=== PATIENT | male | born 1945 | race Caucasian/White ===

== ENCOUNTER 2019-01-15 09:34 | Outpatient (CLI) | payer MEDICARE, BC, SELFPAY ==
--- NOTE | 2019-01-15 09:38 | DI.RAD_ITS ---
SYMPTOM/DIAGNOSIS: F/U REVISION THR LEFT HIP: The patient is status post WALI with revision of the original prosthesis noted on 12/19/16. The prosthetic device is in good position. No localized bony abnormality is apparent. There is no evidence of these images of a fracture, dislocation or soft tissue mass.
== END 2019-01-15 09:54 ==
PROVIDERS: PCP Emergency Medicine; Referring Provider Emergency Medicine; Visit Provider Orthopaedic Surgery
DX: M25.552 Pain in left hip (principal); Z96.642 Presence of left artificial hip joint; M21.70 Unequal limb length (acquired), unspecified site
CPT/HCPCS: 99213; 73502

== ENCOUNTER 2019-10-02 07:00 | Outpatient (CLI) | payer MEDICARE, BC, SELFPAY ==
[2019-10-02 10:26] LABS: Absolute Basophil Count 0.04 k/cumm (0.0-0.2); Absolute Eosinophil Count 0.22 k/cumm (0.0-0.7); Absolute Lymphocyte Count 1.21 k/cumm (1.2-3.4); Absolute Monocyte Count 0.53 k/cumm (0.11-0.7); Basophils % 0.8; Eosinophils % 4.2; HCT 44.3 % (40.0-50.0); HGB 14.9 g/dL (13.5-17.5); Lymphocytes % 23.3; Mean Corp. HGB Concentration 33.6 g/dL (32.0-36.0); Mean Corpuscular Volume 92.3 fL (80-95); Mean Platelet Volume 10.6 fL (8.0-11.0); Monocytes % 10.2; Neutrophils % 61.5; Platelet Count 138 x1000/uL (130-400); RBC Distribution Width 13.3 % (11.8-14.1)
[2019-10-02 10:38] LABS: ALT 28 U/L (16-63); AST 15 U/L (15-37); Albumin 4.2 g/dL (3.4-5.0); Alkaline Phosphatase 91 U/L (46-116); Anion Gap 8.4 mmol/L (3-11); BUN 31 mg/dL (7-18); Bilirubin, Total 0.6 mg/dL (0.2-1.0); CO2 29.6 mmol/L (21.0-32.0); CREATININE 1.04 mg/dL (0.70-1.30); Calcium 9.4 mg/dL (8.5-10.1); Calculated LDL 95 mg/dL; Chloride 110 mmol/L (98-107); Cholesterol 156 mg/dL (<200); Glucose 77 mg/dL (74-106); HDL Cholesterol 40 mg/dL (40-60); Potassium 4.6 mmol/L (3.5-5.1); Sodium 148 mmol/L (136-145); Triglyceride 109 mg/dL (<150)
[2019-10-02 11:37] LABS: ESR 7 mm/hr (1-20)
== END 2019-10-02 07:20 ==
PROVIDERS: PCP Emergency Medicine; Visit Provider Emergency Medicine
DX: K57.30 Diverticulosis of large intestine without perforation or abscess without bleeding (principal); M00.09 Staphylococcal polyarthritis; E66.3 Overweight
CPT/HCPCS: 36415; 80053; 80061; 85652; 85025; 86140

== ENCOUNTER 2019-12-03 10:15 | Outpatient (CLI) | payer MEDICARE, BC, SELFPAY ==
--- NOTE | 2019-12-03 10:13 | DI.RAD_ITS ---
EXAM: XR HIP LT COMPLETE AND AP PELVIS INDICATION: ACUTE LEFT HIP PAIN. COMPARISON: XR hip LT complete AP pelvis from 01/15/2019 TECHNIQUE: 2D digital imaging was performed. FINDINGS: The left hip prosthesis is stable in position. No evidence of hardware failure is seen. The distal aspect of the femoral component is not visualized. No acute fracture or dislocation is present. The soft tissues are unremarkable.
== END 2019-12-03 10:35 ==
PROVIDERS: PCP Emergency Medicine; Referring Provider Emergency Medicine; Visit Provider Orthopaedic Surgery
DX: M25.552 Pain in left hip (principal); Z96.642 Presence of left artificial hip joint; M00.9 Pyogenic arthritis, unspecified; M79.652 Pain in left thigh; T84.52XD Infection and inflammatory reaction due to internal left hip prosthesis, subsequent encounter
CPT/HCPCS: 36415; 85027; 85652; 99213; 73502; 86140

== ENCOUNTER 2019-12-03 10:48 | Outpatient (CLI) | payer MEDICARE, BC, SELFPAY ==
[2019-12-03 11:33] LABS: HCT 44.6 % (40.0-50.0); Mean Corp. HGB Concentration 33.6 g/dL (32.0-36.0); Mean Corpuscular Hemoglobin 30.9 pg (27.0-33.0); Mean Corpuscular Volume 91.8 fL (80-95); Mean Platelet Volume 10.1 fL (8.0-11.0); Platelet Count 155 x1000/uL (130-400); RBC 4.86 m/cumm (4.50-6.00); White Blood Cell Count 5.78 k/cumm (4.4-10.8)
[2019-12-03 12:23] LABS: ESR 3 mm/hr (1-20)
[2019-12-03 13:16] LABS: C-Reactive Protein 0.11 mg/dL (0.0-0.3)
== END 2019-12-03 11:08 ==
PROVIDERS: PCP Emergency Medicine; Visit Provider Physician Assistant
DX: M00.9 Pyogenic arthritis, unspecified (principal); Z96.642 Presence of left artificial hip joint
CPT/HCPCS: 36415; 85027; 85652; 86140

== ENCOUNTER → 2020-01-01 10:24 | Outpatient (BNVA) | payer MEDICARE, BC, SELFPAY | PROVIDERS: PCP Emergency Medicine; Referring Provider Emergency Medicine; Visit Provider Orthopaedic Surgery | DX: S76.019D Strain of muscle, fascia and tendon of unspecified hip, subsequent encounter (principal); X58.XXXD Exposure to other specified factors, subsequent encounter | CPT/HCPCS: 99213 ==

== ENCOUNTER 2020-01-14 08:37 | Emergency (ER) | payer OTHER, SELFPAY ==
[2020-01-14] VITALS (16 sets, daily range): BP systolic 119–161; BP diastolic 78–110; PULSE 60–64; RESP 0–20; TEMP 36.5; O2SAT 95–99
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
[2020-01-14] MEDS: Lidocaine 5% Patch 1 PATCH TP (09:24)
[2020-01-14] MEDS: Acetaminophen 500 MG TAB 1000 MG PO (09:24)
== END 2020-01-14 11:45 | disposition home or self-care (01) ==
PROVIDERS: Emergency Provider Physician Assistant; PCP Emergency Medicine
DX: R07.81 Pleurodynia (principal); S22.41XA Multiple fractures of ribs, right side, initial encounter for closed fracture; V43.52XA Car driver injured in collision with other type car in traffic accident, initial encounter; Z95.810 Presence of automatic (implantable) cardiac defibrillator
CPT/HCPCS: 71250; 93005; 99284; 93010; 99285

== ENCOUNTER 2020-04-28 02:40 | Outpatient (CLI) | payer MEDICARE, BC, SELFPAY ==
[2020-04-28 14:44] LABS: Anion Gap 7.8 mmol/L (3-11); BUN 24 mg/dL (7-18); CO2 27.2 mmol/L (21.0-32.0); CREATININE 1.01 mg/dL (0.70-1.30); Calcium 9.1 mg/dL (8.5-10.1); Chloride 108 mmol/L (98-107); Glucose 77 mg/dL (74-106); NT-proBNP 205 pg/mL (<300); Potassium 4.3 mmol/L (3.5-5.1); Sodium 143 mmol/L (136-145)
== END 2020-04-28 03:00 ==
PROVIDERS: PCP Emergency Medicine; Visit Provider Internal Medicine Cardiovascular Disease
DX: I50.22 Chronic systolic (congestive) heart failure (principal)
CPT/HCPCS: 36415; 80048; 83880

== ENCOUNTER 2020-09-15 01:58 | Outpatient (CLI) | payer MEDICARE, BC, SELFPAY ==
[2020-09-15 09:03] LABS: Abs Immature Grans 0.02 10^3/uL (0.0-0.06); Absolute Basophil Count 0.04 10^3/uL (0.0-0.2); Absolute Eosinophil Count 0.25 10^3/uL (0.0-0.7); Absolute Lymphocyte Count 1.28 10^3/uL (1.2-3.4); Absolute Monocyte Count 0.42 10^3/uL (0.1-0.8); Absolute Neutrophil Count 2.92 10^3/uL (1.2-6.7); Basophils % 0.8; Eosinophils % 5.1; HCT 41.5 % (40.0-50.0); HGB 14.3 g/dL (13.5-17.5); Immature Grans % 0.4; MCH 31.7 pg (27.0-33.0); MCHC 34.5 % (32.0-36.0); MPV 10.5 fL (8.0-11.0); Monocytes % 8.5; Neutrophils % 59.2; Nucleated RBC 0 %; Platelet Count 126 10^3/uL (130-400); RBC 4.51 10^6/uL (4.36-5.78); RDW 12.5 % (11.8-14.1); RDW-SD 42.2 fL; WBC 4.93 10^3/uL (4.4-10.8)
[2020-09-15 10:19] LABS: ESR 8 mm/hr (1-20)
[2020-09-15 10:35] LABS: ALT 24 U/L (16-63); AST 18 U/L (15-37); Alkaline Phosphatase 91 U/L (46-116); BUN 29 mg/dL (7-18); Bilirubin, Direct 0.11 mg/dL (0.00-0.20); Bilirubin, Total 0.5 mg/dL (0.2-1.0); C-Reactive Protein 0.15 mg/dL (0.0-0.3); CREATININE 1.06 mg/dL (0.70-1.30); Total Protein 6.8 g/dL (6.4-8.2)
== END 2020-09-15 02:18 ==
PROVIDERS: PCP Emergency Medicine; Visit Provider Orthopaedic Surgery
DX: M00.9 Pyogenic arthritis, unspecified (principal)
CPT/HCPCS: 36415; 80076; 84520; 85652; 82565; 85025; 86140

== ENCOUNTER 2020-09-22 13:53 | Outpatient (CLI) | payer MEDICARE, BC, SELFPAY ==
--- NOTE | 2020-09-22 11:45 | DI.RAD_ITS ---
EXAM: XR HIP LT AP LAT ONLY CLINICAL HISTORY: pain. TECHNIQUE: 2D digital imaging was performed. COMPARISON: CR XR HIP LT COMPLETE AP PELVIS from 12/03/2019 FINDINGS: BONES: No acute fracture is present. No bony destructive lesion is seen. JOINTS: No dislocation present. Stable appearance of left hip prosthesis. SOFT TISSUE: Normal. IMPRESSION: Stable appearance of left hip prosthesis. DATA REPOSITORY: RADIATION DOSE DELIVERED:
== END 2020-09-22 14:13 ==
PROVIDERS: PCP Emergency Medicine; Referring Provider Emergency Medicine; Visit Provider Orthopaedic Surgery
DX: Z96.642 Presence of left artificial hip joint (principal); M25.552 Pain in left hip; M00.9 Pyogenic arthritis, unspecified
CPT/HCPCS: 99213; 73502

== ENCOUNTER → 2020-09-30 07:46 | Outpatient (BNVA) | payer MEDICARE, BC, SELFPAY | PROVIDERS: PCP Emergency Medicine; Referring Provider Emergency Medicine; Visit Provider Nurse Practitioner Gerontology | DX: N32.81 Overactive bladder (principal) | CPT/HCPCS: 99204; 99215 ==

== ENCOUNTER 2020-09-30 08:49 | Outpatient (REF) | payer MEDICARE, BC, SELFPAY | END 2020-09-30 09:09 | LOC: LBN 08:49 | PROVIDERS: PCP Emergency Medicine; Visit Provider Nurse Practitioner Gerontology | DX: R32 Unspecified urinary incontinence (principal); Z12.5 Encounter for screening for malignant neoplasm of prostate | CPT/HCPCS: 84153 ==

== ENCOUNTER 2020-10-05 00:35 | Outpatient (CLI) | payer MEDICARE, BC, SELFPAY ==
--- NOTE | 2020-10-05 07:00 | DI.NM_ITS ---
EXAM: NM BONE SCAN WHOLE BDY W/SPECT CLINICAL HISTORY: Left hip pain. Possible loose femoral stem,M25.552 TECHNIQUE: COMPARISON: CT ABD PELVIS WITH CONTRAST from 06/09/2012 NM Bone Scan from 03/08/2018 NM Bone Scan from 03/08/2018 CR XR HIP LT AP LAT ONLY from 09/22/2020 CR XR HIP LT AP LAT ONLY from 09/22/2020 FINDINGS: Whole body bone scan was performed with IV technetium 99 MDP. Relevant prior plain films were review ed There is abnormal uptake around the inferior aspect of the left hip prosthesis consistent with probab le loosening. 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 There is also increased focal uptake s een in there is probably upper L5 vertebral body.. No other significant uptake in the spinal column. In in the upper right parietal bone of the skull there is a focus of increased uptake, suspicious. There is increased uptake seen in the anterior aspect of the 1st ribs on both sides as well as the r ight 3rd, 4th, and 5th ribs, possibly related to trauma although cannot exclude metastatic disease. No abnormal uptake seen in the left ridge cage. Photopenic zone on the left side of the chest is mos t probably from pacemaker. Uptake in the right great toe metatarsophalangeal joint is most probably degenerative or gout related . IMPRESSION: 1. Abnormal uptake around the lower stem of the left hip prosthesis, probably an element of loosening . 2. 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 3. Unilateral right-sided ribcage uptake is possibly posttraumatic. 4. Focus of increased uptake in the right parietal bone of the skull. 5. Other findings as above.
== END 2020-10-05 00:55 ==
PROVIDERS: PCP Emergency Medicine; Visit Provider Emergency Medicine
DX: M25.552 Pain in left hip (principal); Z96.642 Presence of left artificial hip joint
CPT/HCPCS: 78306; 78830

== ENCOUNTER 2020-10-08 03:20 | Outpatient (CLI) | payer MEDICARE, BC, SELFPAY ==
--- NOTE | 2020-10-08 07:15 | DI.CT_ITS ---
EXAM: CT PELVIC WO CLINICAL HISTORY: abnormal bone scan,R94.8. TECHNIQUE: Imaging Protocol: Axial computed tomography images with coronal and sagittal reformatted images were created and reviewed CONTRAST MATERIAL: Intravenous: none Oral: None COMPARISON: CT,NM NM BONE SCAN WHOLE BDY W/SPECT from 10/05/2020 FINDING: PELVIS: OSSEOUS: There are advanced degenerative changes in the lower lumbar spine, both degenerative disc di sease and facet joint arthropathy, this most probably accounting for the increased uptake on the rece nt nuclear bone scan at this level. However, there is also a focal lucent bone lesion measuring 8 x 7 millimeters located in the right lamina of L5 and this is also corresponding the same area which ex hibits abnormals uptake on the recent nuclear scan.. This well-defined bone lesion is slightly expan sile and with cortical thickening at this level in the lamina. In the left hemipelvis there is a definite asymmetry in the density of the pubic rami on the left werner dutch the right side. The right side appears unremarkable. The left superior and inferior pubic rami exhibit abnormal increased density, this corresponding to the uptake on the recent nuclear scan. The re is no cortex thickening to suggest that this is Paget's disease. Main consideration is for osseou s infection versus blastic metastases. There is no cortical dehiscence.. No adjacent fluid collecti on in the soft tissues of the pelvis. No associated pathologic fracture. This process also extends posteriorly into the iliac bone but does not cross the sacroiliac joint to involve the sacrum. There is an ipsilateral left hip prosthesis. There is some lucency around the upper femoral stem. T he cortex also appears uniformly hyperdense around the stem component although unfortunately the most inferior aspect of the stem component is not in the field of view of this study, this being the area which exhibit abnormal uptake on the recent nuclear bone scan. ANTERIOR ABDOMINAL WALL/GI:No evidence of significant anterior abdominal wall nor inguinal hernia in the pelvis evident.No obvious bowel obstruction. No evidence of appendicitis.No evidence of acute si gmoid diverticulitis.No free fluid in the pelvis. Upper most image of this study reveals what appears to be probable exophytic cyst off the left kidney , only partially included in the field of view here. This measures approximately 4 by 3.5 centimetres . LYMPH NODES: There is no intrapelvic nor inguinal adenopathy. URINARY BLADDER: Not distended but difficult to assess because of beam hardening artifact from the ad jacent left hip prosthesis. REPRODUCTIVE: Prostate gland is slightly enlarged. Urinary bladder is not distended. IMPRESSION: 1. Increased density in the left osseous hemipelvis including post superior and inferior pubic rami a s well as the acetabulum and iliac bone extending back 2 but not beyond the ipsilateral sacroiliac karen int. Also similar-type increased density seen in the femur surrounding the prosthesis. No evidence of pathologic fracture. First consideration here is for osteomyelitis; less likely to represent Page t's disease, fibrous dysplasia, nor blastic metastatic disease. 2. Although there is abundant degenerative change in the lumbar spine to account for the increased up take at L5 level seen on the recent nuclear bone scan, there is also a small well-defined but somewha t expansile 8 x 7 millimeter lucent lesion in the right lamina of the L5 vertebra, this also correspo nding to the area of abnormal uptake of radiopharmaceutical on the recent nuclear exam. 3. Incidentally noted in the peripheral aspect of the field of view is a partially included exophytic cyst in the left kidney measuring 4 centimeters. RADIATION DOSE DELIVERED: 664.1mGy.cm Total DLP DATA REPOSITORY: All CT scans at this facility are submitted to the National Radiology Data Registry (NRDR) Dose Index Registry (DIR) with the [employer] (ACR). RADIATION OPTIMIZATION: All CT scans at this facility use at least one of these dose optimization te chniques: automated exposure control; mA and/or kV adjustment per patient size (includes targeted exa ms where dose is matched to clinical indication); or iterative reconstruction.
== END 2020-10-08 03:40 ==
PROVIDERS: PCP Emergency Medicine; Visit Provider Emergency Medicine
DX: R94.8 Abnormal results of function studies of other organs and systems (principal); M47.816 Spondylosis without myelopathy or radiculopathy, lumbar region; N28.1 Cyst of kidney, acquired
CPT/HCPCS: 72192

== ENCOUNTER 2020-11-02 08:54 | Outpatient (CLI) | payer MEDICARE, BC, SELFPAY ==
[2020-11-03 19:36] LABS: COVID-19 RT-PCR UVMMC Result Negative (Negative)
== END 2020-11-02 09:14 ==
PROVIDERS: PCP Emergency Medicine; Visit Provider Orthopaedic Surgery Adult Reconstructive Orthopaedic Surgery
DX: Z11.59 Encounter for screening for other viral diseases (principal); Z01.818 Encounter for other preprocedural examination
CPT/HCPCS: U0003

== ENCOUNTER 2020-11-09 19:21 | Outpatient (REF) | payer MEDICARE, BC, SELFPAY ==
[2020-11-09 14:08] LABS: Abs Immature Grans 0.01 10^3/uL (0.0-0.06); Absolute Basophil Count 0.05 10^3/uL (0.0-0.2); Absolute Eosinophil Count 0.28 10^3/uL (0.0-0.7); Absolute Lymphocyte Count 0.76 10^3/uL (1.2-3.4); Absolute Monocyte Count 0.64 10^3/uL (0.1-0.8); Absolute Neutrophil Count 4.15 10^3/uL (1.2-6.7); Basophils % 0.8; Eosinophils % 4.8; HCT 28.9 % (40.0-50.0); HGB 9.7 g/dL (13.5-17.5); Immature Grans % 0.2; Lymphocytes % 12.9; MCH 31.4 pg (27.0-33.0); MCHC 33.6 % (32.0-36.0); MCV 93.5 fL (80-95); MPV 11.5 fL (8.0-11.0); Monocytes % 10.9; Neutrophils % 70.4; Nucleated RBC 0 %; Platelet Count 122 10^3/uL (130-400); RBC 3.09 10^6/uL (4.36-5.78); RDW-SD 44.5 fL; WBC 5.89 10^3/uL (4.4-10.8)
[2020-11-09 14:33] LABS: ALT 18 U/L (16-63); AST 21 U/L (15-37); Albumin 3.2 g/dL (3.4-5.0); Alkaline Phosphatase 65 U/L (46-116); Anion Gap 7.2 mmol/L (3-11); BUN 16 mg/dL (7-18); Bilirubin, Total 0.6 mg/dL (0.2-1.0); C-Reactive Protein 10.12 mg/dL (0.0-0.3); CO2 29.8 mmol/L (21.0-32.0); Calcium 8.5 mg/dL (8.5-10.1); Chloride 107 mmol/L (98-107); Glucose 83 mg/dL (74-106); Sodium 144 mmol/L (136-145); Total Protein 5.9 g/dL (6.4-8.2)
== END 2020-11-09 19:41 ==
LOC: LBN 19:21
PROVIDERS: PCP Emergency Medicine; Visit Provider Orthopaedic Surgery Adult Reconstructive Orthopaedic Surgery
DX: Z79.2 Long term (current) use of antibiotics (principal); T84.52XD Infection and inflammatory reaction due to internal left hip prosthesis, subsequent encounter
CPT/HCPCS: 80053; 85025; 86140

== ENCOUNTER 2020-11-16 19:21 | Outpatient (REF) | payer MEDICARE, BC, SELFPAY ==
[2020-11-16 14:35] LABS: Abs Immature Grans 0.02 10^3/uL (0.0-0.06); Absolute Basophil Count 0.04 10^3/uL (0.0-0.2); Absolute Eosinophil Count 0.31 10^3/uL (0.0-0.7); Absolute Lymphocyte Count 0.97 10^3/uL (1.2-3.4); Absolute Monocyte Count 0.52 10^3/uL (0.1-0.8); Absolute Neutrophil Count 5.17 10^3/uL (1.2-6.7); Basophils % 0.6; Eosinophils % 4.4; HCT 32.3 % (40.0-50.0); HGB 10.7 g/dL (13.5-17.5); Immature Grans % 0.3; Lymphocytes % 13.8; MCH 31.1 pg (27.0-33.0); MCHC 33.1 % (32.0-36.0); MCV 93.9 fL (80-95); MPV 10.1 fL (8.0-11.0); Monocytes % 7.4; Neutrophils % 73.5; Nucleated RBC 0 %; Platelet Count 248 10^3/uL (130-400); RBC 3.44 10^6/uL (4.36-5.78); RDW 12.6 % (11.8-14.1); RDW-SD 43.5 fL; WBC 7.03 10^3/uL (4.4-10.8)
[2020-11-16 14:41] LABS: ALT 21 U/L (16-63); AST 16 U/L (15-37); Albumin 3.2 g/dL (3.4-5.0); Alkaline Phosphatase 97 U/L (46-116); Anion Gap 8.6 mmol/L (3-11); BUN 24 mg/dL (7-18); Bilirubin, Total 0.3 mg/dL (0.2-1.0); C-Reactive Protein 2.97 mg/dL (0.0-0.3); CO2 27.4 mmol/L (21.0-32.0); CREATININE 0.96 mg/dL (0.70-1.30); Calcium 8.4 mg/dL (8.5-10.1); Chloride 105 mmol/L (98-107); Glucose 106 mg/dL (74-106); Potassium 4.3 mmol/L (3.5-5.1); Sodium 141 mmol/L (136-145); Total Protein 6.9 g/dL (6.4-8.2)
== END 2020-11-16 19:41 ==
LOC: LBN 19:21
PROVIDERS: PCP Emergency Medicine; Visit Provider Orthopaedic Surgery Adult Reconstructive Orthopaedic Surgery
DX: A49.9 Bacterial infection, unspecified (principal)
CPT/HCPCS: 80053; 85025; 86140

== ENCOUNTER 2020-11-23 14:23 | Outpatient (REF) | payer MEDICARE, BC, SELFPAY ==
[2020-11-23 15:13] LABS: Abs Immature Grans 0.02 10^3/uL (0.0-0.06); Absolute Basophil Count 0.08 10^3/uL (0.0-0.2); Absolute Eosinophil Count 0.26 10^3/uL (0.0-0.7); Absolute Lymphocyte Count 0.74 10^3/uL (1.2-3.4); Absolute Monocyte Count 0.52 10^3/uL (0.1-0.8); Absolute Neutrophil Count 3.54 10^3/uL (1.2-6.7); Basophils % 1.6; HCT 35.8 % (40.0-50.0); HGB 11.5 g/dL (13.5-17.5); Immature Grans % 0.4; Lymphocytes % 14.3; MCH 30.3 pg (27.0-33.0); MCHC 32.1 % (32.0-36.0); MCV 94.5 fL (80-95); Monocytes % 10.1; Neutrophils % 68.6; Nucleated RBC 0 %; Platelet Count 293 10^3/uL (130-400); RBC 3.79 10^6/uL (4.36-5.78); RDW-SD 44.7 fL; WBC 5.16 10^3/uL (4.4-10.8)
[2020-11-23 15:37] LABS: ALT 17 U/L (16-63); AST 13 U/L (15-37); Albumin 3.6 g/dL (3.4-5.0); Alkaline Phosphatase 109 U/L (46-116); Anion Gap 8.4 mmol/L (3-11); BUN 27 mg/dL (7-18); Bilirubin, Total 0.4 mg/dL (0.2-1.0); C-Reactive Protein 0.76 mg/dL (0.0-0.3); CO2 26.6 mmol/L (21.0-32.0); CREATININE 1.04 mg/dL (0.70-1.30); Chloride 105 mmol/L (98-107); Glucose 105 mg/dL (74-106); Potassium 4.3 mmol/L (3.5-5.1); Sodium 140 mmol/L (136-145)
[2020-11-23 15:39] LABS: Calcium 9.1 mg/dL (8.5-10.1)
== END 2020-11-23 14:43 ==
LOC: LBN 14:23
PROVIDERS: PCP Emergency Medicine; Visit Provider Orthopaedic Surgery Adult Reconstructive Orthopaedic Surgery
DX: T84.52XD Infection and inflammatory reaction due to internal left hip prosthesis, subsequent encounter (principal)
CPT/HCPCS: 80053; 85025; 86140

== ENCOUNTER 2020-11-30 13:31 | Outpatient (REF) | payer MEDICARE, BC, SELFPAY ==
[2020-11-30 15:29] LABS: Abs Immature Grans 0.02 10^3/uL (0.0-0.06); Absolute Basophil Count 0.04 10^3/uL (0.0-0.2); Absolute Eosinophil Count 0.27 10^3/uL (0.0-0.7); Absolute Lymphocyte Count 0.74 10^3/uL (1.2-3.4); Absolute Neutrophil Count 2.95 10^3/uL (1.2-6.7); Basophils % 0.9; HCT 37.1 % (40.0-50.0); HGB 12.1 g/dL (13.5-17.5); Immature Grans % 0.4; Lymphocytes % 16.4; MCH 30.6 pg (27.0-33.0); MCHC 32.6 % (32.0-36.0); MCV 93.9 fL (80-95); MPV 10.5 fL (8.0-11.0); Monocytes % 11.1; Neutrophils % 65.2; Nucleated RBC 0 %; Platelet Count 196 10^3/uL (130-400); RBC 3.95 10^6/uL (4.36-5.78); RDW-SD 44.6 fL; WBC 4.52 10^3/uL (4.4-10.8)
[2020-11-30 15:41] LABS: ALT 17 U/L (16-63); AST 13 U/L (15-37); Albumin 3.5 g/dL (3.4-5.0); Alkaline Phosphatase 134 U/L (46-116); Anion Gap 10.3 mmol/L (3-11); BUN 28 mg/dL (7-18); Bilirubin, Total 0.2 mg/dL (0.2-1.0); C-Reactive Protein 0.59 mg/dL (0.0-0.3); CO2 26.7 mmol/L (21.0-32.0); Chloride 106 mmol/L (98-107); Glucose 115 mg/dL (74-106); Potassium 4.1 mmol/L (3.5-5.1); Sodium 143 mmol/L (136-145)
== END 2020-11-30 13:51 ==
LOC: LBN 13:31
PROVIDERS: PCP Emergency Medicine; Visit Provider Orthopaedic Surgery Adult Reconstructive Orthopaedic Surgery
DX: T84.52XD Infection and inflammatory reaction due to internal left hip prosthesis, subsequent encounter (principal); Z79.2 Long term (current) use of antibiotics
CPT/HCPCS: 80053; 85025; 86140

== ENCOUNTER 2020-12-07 13:29 | Outpatient (REF) | payer MEDICARE, BC, SELFPAY ==
[2020-12-07 16:39] LABS: Abs Immature Grans 0.01 10^3/uL (0.0-0.06); Absolute Basophil Count 0.02 10^3/uL (0.0-0.2); Absolute Eosinophil Count 0.16 10^3/uL (0.0-0.7); Absolute Lymphocyte Count 0.63 10^3/uL (1.2-3.4); Absolute Monocyte Count 0.44 10^3/uL (0.1-0.8); Absolute Neutrophil Count 2.33 10^3/uL (1.2-6.7); Basophils % 0.6; Eosinophils % 4.5; HCT 38.4 % (40.0-50.0); HGB 12.3 g/dL (13.5-17.5); Immature Grans % 0.3; Lymphocytes % 17.5; MCH 30.1 pg (27.0-33.0); MCV 93.9 fL (80-95); MPV 10.2 fL (8.0-11.0); Monocytes % 12.3; Neutrophils % 64.8; Nucleated RBC 0 %; Platelet Count 137 10^3/uL (130-400); RBC 4.09 10^6/uL (4.36-5.78); RDW 12.8 % (11.8-14.1); RDW-SD 43.8 fL; WBC 3.59 10^3/uL (4.4-10.8)
[2020-12-07 17:51] LABS: ALT 16 U/L (16-63); AST 17 U/L (15-37); Albumin 3.6 g/dL (3.4-5.0); Alkaline Phosphatase 123 U/L (46-116); BUN 24 mg/dL (7-18); Bilirubin, Total 0.3 mg/dL (0.2-1.0); C-Reactive Protein 0.58 mg/dL (0.0-0.3); Calcium 9.1 mg/dL (8.5-10.1); Chloride 106 mmol/L (98-107); Glucose 143 mg/dL (74-106); Sodium 144 mmol/L (136-145)
== END 2020-12-07 13:30 | disposition home or self-care (01) ==
LOC: LBN 13:29
PROVIDERS: PCP Emergency Medicine; Referring Provider Orthopaedic Surgery Adult Reconstructive Orthopaedic Surgery; Visit Provider Orthopaedic Surgery Adult Reconstructive Orthopaedic Surgery
DX: T84.52XD Infection and inflammatory reaction due to internal left hip prosthesis, subsequent encounter (principal); Z79.2 Long term (current) use of antibiotics
CPT/HCPCS: 80053; 85025; 86140

== ENCOUNTER 2020-12-14 09:26 | Outpatient (REF) | payer MEDICARE, BC, SELFPAY ==
[2020-12-15 14:03] LABS: ALT 25 U/L (16-63); AST 24 U/L (15-37); Albumin 3.6 g/dL (3.4-5.0); Alkaline Phosphatase 113 U/L (46-116); Anion Gap 9.9 mmol/L (3-11); BUN 29 mg/dL (7-18); Bilirubin, Total 0.2 mg/dL (0.2-1.0); C-Reactive Protein 0.52 mg/dL (0.0-0.3); CO2 28.1 mmol/L (21.0-32.0); Calcium 8.7 mg/dL (8.5-10.1); Chloride 108 mmol/L (98-107); Glucose 92 mg/dL (74-106); Potassium 4.2 mmol/L (3.5-5.1); Sodium 146 mmol/L (136-145); Total Protein 6.8 g/dL (6.4-8.2)
== END 2020-12-14 09:27 | disposition home or self-care (01) ==
LOC: LBN 09:26
PROVIDERS: PCP Emergency Medicine; Referring Provider Orthopaedic Surgery Adult Reconstructive Orthopaedic Surgery; Visit Provider Orthopaedic Surgery Adult Reconstructive Orthopaedic Surgery
DX: T84.52XD Infection and inflammatory reaction due to internal left hip prosthesis, subsequent encounter (principal); Z79.2 Long term (current) use of antibiotics
CPT/HCPCS: 80053; 85025; 86140

== ENCOUNTER 2020-12-15 15:07 | Outpatient (REF) | payer MEDICARE, BC, SELFPAY ==
[2020-12-15 15:20] LABS: Absolute Basophil Count 0.02 10^3/uL (0.0-0.2); Absolute Eosinophil Count 0.32 10^3/uL (0.0-0.7); Absolute Lymphocyte Count 0.65 10^3/uL (1.2-3.4); Absolute Monocyte Count 0.24 10^3/uL (0.1-0.8); Basophils % 0.9; Eosinophils % 13.7; HCT 37.5 % (40.0-50.0); HGB 12.2 g/dL (13.5-17.5); Lymphocytes % 27.9; MCH 29.8 pg (27.0-33.0); MCHC 32.5 % (32.0-36.0); MCV 91.7 fL (80-95); MPV 11.1 fL (8.0-11.0); Monocytes % 10.3; Neutrophils % 47.2; Nucleated RBC 0 %; Platelet Count 112 10^3/uL (130-400); RBC 4.09 10^6/uL (4.36-5.78); RDW 12.8 % (11.8-14.1); WBC 2.33 10^3/uL (4.4-10.8)
== END 2020-12-15 15:08 | disposition home or self-care (01) ==
LOC: LBN 15:07
PROVIDERS: PCP Emergency Medicine; Visit Provider Orthopaedic Surgery Adult Reconstructive Orthopaedic Surgery
DX: T84.52XD Infection and inflammatory reaction due to internal left hip prosthesis, subsequent encounter (principal); Z79.2 Long term (current) use of antibiotics
CPT/HCPCS: 85025

== ENCOUNTER 2020-12-28 04:26 | Outpatient (CLI) | payer MEDICARE, BC, SELFPAY ==
[2020-12-28 13:00] LABS: Abs Immature Grans 0.01 10^3/uL (0.0-0.06); Absolute Basophil Count 0.05 10^3/uL (0.0-0.2); Absolute Eosinophil Count 0.11 10^3/uL (0.0-0.7); Absolute Lymphocyte Count 0.88 10^3/uL (1.2-3.4); Absolute Monocyte Count 0.41 10^3/uL (0.1-0.8); Absolute Neutrophil Count 2.41 10^3/uL (1.2-6.7); Basophils % 1.3; Eosinophils % 2.8; HCT 39.2 % (40.0-50.0); HGB 12.9 g/dL (13.5-17.5); Immature Grans % 0.3; Lymphocytes % 22.7; MCH 29.8 pg (27.0-33.0); MCHC 32.9 % (32.0-36.0); MCV 90.5 fL (80-95); MPV 10.3 fL (8.0-11.0); Monocytes % 10.6; Neutrophils % 62.3; Nucleated RBC 0 %; Platelet Count 173 10^3/uL (130-400); RBC 4.33 10^6/uL (4.36-5.78); RDW 12.6 % (11.8-14.1); RDW-SD 41.5 fL; WBC 3.87 10^3/uL (4.4-10.8)
[2020-12-28 15:46] LABS: ESR 8 mm/hr (<or=20)
== END 2020-12-28 04:27 | disposition home or self-care (01) ==
LOC: LBO 04:26
PROVIDERS: PCP Emergency Medicine; Visit Provider Emergency Medicine
DX: D72.819 Decreased white blood cell count, unspecified (principal)
CPT/HCPCS: 36415; 85652; 85025

== ENCOUNTER → 2020-12-30 08:52 | Outpatient (BNVA) | payer MEDICARE, BC, SELFPAY | PROVIDERS: PCP Emergency Medicine; Referring Provider Emergency Medicine; Visit Provider Nurse Practitioner Gerontology | DX: N32.81 Overactive bladder (principal) | CPT/HCPCS: 99213 ==

== ENCOUNTER 2021-04-16 11:08 | Day surgery (SDC) | payer MEDICARE, BC, SELFPAY ==
[2021-04-16] VITALS (12 sets, daily range): BP systolic 85–141; BP diastolic 45–91; PULSE 59–63; RESP 10–18; TEMP 36–36.6; O2SAT 94–99; BMI 33.4
--- NOTE | 2021-04-16 11:00 | DI.RAD_ITS ---
Exam(s) XR HIP LT COMPLETE AP PELVIS EXAM: XR HIP LT COMPLETE AP PELVIS CLINICAL HISTORY: dislocation vs fx, hx of hip replacement. TECHNIQUE: 2D digital imaging was performed. COMPARISON: CR XR HIP LT COMPLETE AP PELVIS from 12/03/2019 FINDINGS: BONES: No acute fracture is present. No bony destructive lesion is seen. JOINTS: The patient has a left total hip replacement. There is a posterior dislocation of the femora l head component relative to the acetabular component. SOFT TISSUE: Normal. IMPRESSION: Left WALI. Posterior dislocation of the femoral head component of the arthroplasty relative to the ac etabular component. DATA REPOSITORY: RADIATION DOSE DELIVERED:
--- NOTE | 2021-04-16 11:00 | RT.EKG_ITS ---
APPROVED REPORT Exam: Resting ECG Reason for Exam: pre op Patient Location: E HR:60 bpm ECG Measurements Heart Rate 60 AXIS IN 180 P 104 QRSd 153 QRS 82 QT 467 T -25 QTc 469 Conclusion Sinus rhythm...normal P axis, V-rate 60- 99 Right bundle branch block...QRSd>120, terminal axis(90,270)
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
[2021-04-16 11:23] LABS: Abs Immature Grans 0.01 10^3/uL (0.0-0.06); Absolute Basophil Count 0.04 10^3/uL (0.0-0.2); Absolute Eosinophil Count 0.17 10^3/uL (0.0-0.7); Absolute Lymphocyte Count 0.68 10^3/uL (1.2-3.4); Absolute Monocyte Count 0.42 10^3/uL (0.1-0.8); Absolute Neutrophil Count 2.52 10^3/uL (1.2-6.7); Eosinophils % 4.4; HCT 37.1 % (40.0-50.0); HGB 12.1 g/dL (13.5-17.5); Immature Grans % 0.3; Lymphocytes % 17.7; MCHC 32.6 % (32.0-36.0); MPV 10.6 fL (8.0-11.0); Monocytes % 10.9; Neutrophils % 65.7; Nucleated RBC 0 %; Platelet Count 146 10^3/uL (130-400); RBC 4.17 10^6/uL (4.36-5.78); RDW 14.6 % (11.8-14.1); WBC 3.84 10^3/uL (4.4-10.8)
[2021-04-16 11:23] LABS: Source Nasal/Nares
[2021-04-16 11:36] LABS: ALT 23 U/L (16-63); AST 19 U/L (15-37); Albumin 3.9 g/dL (3.4-5.0); Alkaline Phosphatase 96 U/L (46-116); Anion Gap 9.4 mmol/L (3-11); BUN 22 mg/dL (7-18); Bilirubin, Total 0.6 mg/dL (0.2-1.0); CO2 25.6 mmol/L (21.0-32.0); Chloride 108 mmol/L (98-107); Glucose 110 mg/dL (74-106); Potassium 4.6 mmol/L (3.5-5.1); Sodium 143 mmol/L (136-145); Total Protein 6.8 g/dL (6.4-8.2)
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
[2021-04-16] MEDS: fentaNYL 100 MCG/2 ML VIAL IVP ×2 (12:39→13:00)
[2021-04-16] MEDS: Lactated Ringers 1,000 ML 80 ML IV (12:47)
[2021-04-16] MEDS: Normal Saline Flush 10 ML SYR ×2 (12:48→13:09)
[2021-04-16 12:51] LABS: COVID-19 PCR Negative (Negative)
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
--- NOTE | 2021-04-16 13:30 | DI.RAD_ITS ---
Exam(s) XR HIP LT COMPLETE AP PELVIS EXAM: XR HIP LT COMPLETE AP PELVIS CLINICAL HISTORY: Postop. TECHNIQUE: 2D digital imaging was performed. COMPARISON: CR XR HIP LT COMPLETE AP PELVIS from 04/16/2021 FINDINGS: There has been successful reduction of the left hip prosthetic dislocation. There is normal alignmen t of the left WALI. No fracture is identified. IMPRESSION: Successful reduction of the left hip dislocation. DATA REPOSITORY: RADIATION DOSE DELIVERED:
--- NOTE | 2021-04-16 14:26 | ROE_ITS ---
Date of service: 04/16/21 Time of Service: 14:18 Operative Note Operative Note DATE OF PROCEDURE: 04/16/21 PRE-OP DIAGNOSIS: Left prosthetic hip dislocation POST-OP DIAGNOSIS: same PROCEDURE: Left hip closed reduction under general anesthesia, CPT #41926 SURGEON: Wally Carvalho APPELLATE CONFEREE: None None ANESTHESIA TYPE: General:No Airway Refer to Anesthesia Record ESTIMATED BLOOD LOSS: 0 PATHOLOGY: none sent TOURNIQUET TIME: 0 COMPLICATIONS: None Patient was transported to: PACU Patient's condition: stable Indications: Please see complete medical record for details. Procedure Description: In the operating room, general anesthesia was induced. The patient was positioned supine on the stretcher. All bony prominences were well-padded. Preoperative antibiotics were omitted. The correct patient, site of procedure, and procedure were all verified prior to beginning. The clinical assistant professor maintained downward steady pressure on the pelvis with palms on bilateral ASIS. I started with gentle steady traction in line and then gradually flexed to 90 degrees before applying a moderate upward reduction force with obvious palpable relocation achieved. The hip was brought back into full extension. Leg lengths were equal. Internal/external rotation as well as abduction and abduction were relatively symmetrical. Hip was stable in cross body abduction. Flexion to 90 degrees was stable. Past 90 degrees there was likely some subluxation posteriorly and this was not further tested with provocative internal rotation. Dorsalis pedis pulse remained 2+. All thigh compartments were soft. Incisions were healed without any erythema or drainage. The patient awoke from anesthesia without complication and was transferred to the recovery room in a stable condition.
--- NOTE | 2021-04-16 14:31 | W.PM.DSUDISC ---
Discharge Plan Disposition Patient Disposition: HOME Condition: Stable Discharge Details Reason For Visit: SWATI Attending Provider: Wally Carvalho Primary Care Provider: Troy Doe Home Meds and New Rx's Prescriptions: Continued acetaminophen [Tylenol Extra Strength] 500 mg tablet 1,000 mg PO DAILY PRNRF: 0 metoprolol succinate 100 mg tablet extended release 24 hr 150 mg PO DAILY Qty: 180 RF: 5 Xarelto 15 mg tablet 15 mg PO DAILY Qty: 30 RF: 0 omeprazole 20 mg capsule,delayed release(DR/EC) 20 mg PO DAILY RF: 0 docusate sodium 100 mg capsule 100 mg PO BID RF: 0 oxycodone 5 mg capsule 5 mg PO Q4H PRNRF: 0 gabapentin 300 mg capsule 300 mg PO QHS RF: 0 meloxicam 15 mg tablet 15 mg PO DAILY Qty: 90 RF: 3 Hold Instructions: Home Medication placed on hold at Doctor's office methocarbamol [Robaxin-750] 750 mg tablet 750 mg PO TID Qty: 30 RF: 1 tizanidine 2 mg tablet 2 mg PO Q8H PRN (Reason: muscle spasticity) Qty: 14 RF: 0 lorazepam 1 mg tablet 1 mg PO HS Qty: 90 RF: 1 Discharge Instructions Additional Instructions: Surgery: Left hip closed reduction under anesthesia Activity: Gradually return to full activities as directed by your primary orthopedic surgeon. Avoid deep hip flexion and internal rotation. Recommend avoiding hip flexion past 90 degrees. No brace, pillow, or crutches needed based on today's assessment. May sleep with pillows between legs if concerned about leg crossing abduction. No new prescriptions provided. May use [id number] medications for pain control. No dressing Follow-up: Contact Dr. Zen Sorensen at [facility] to arrange for follow-up care Let us know right away if you develop any redness, drainage, fevers, chest pain, or trouble breathing. Do not drink alcohol or drive for at least 24 hours after anesthesia. Please call the office during business hours with any questions or concerns. Referrals: Wally Carvalho MD [ [facility] STAFF PHYSICIAN] - DS: Diagnosis Discharge Diagnosis (1) Dislocation of internal left hip prosthesis: Status: Acute
--- NOTE | 2021-04-16 14:37 | W.ANESPOSTOP ---
Postoperative Evaluation Date, Time and Location Date Performed: 04/16/21 Time Performed: 14:37 Patient Location: PACU Vital Signs Most Recent Imported Vital Signs: Most Recent Vital Signs Temp Pulse Resp BP Pulse Ox 36.2 C L 60 11 L 108/77 96 04/16/21 14:17 04/16/21 14:17 04/16/21 14:17 04/16/21 14:17 04/16/21 14:17 Pain Score Most Recent Pain Score: Most Recent Pain Score Pain Level [Left Hip] 04/16/21 11:22 Pain Level 04/16/21 13:00 Assessment Mental Status: Awake (Alert & Oriented to Patient Baseline) Airway and Respiratory Function: Patent airway with normal (patient baseline) respiratory exam Cardiovascular Function: Hemodynamically Stable Hydration Status: Adequately Hydrated Nausea & Vomiting: No Nausea or Vomiting Pain: Pain is tolerable per patient Peripheral Nerve Block: Patient did not receive a nerve block
[2021-04-16 14:50] LABS: C-Reactive Protein 0.15 mg/dL (0.0-0.3)
[2021-04-16 15:01] LABS: ESR 4 mm/hr (0-20)
== END 2021-04-16 15:51 | disposition home or self-care (01) ==
LOC: ER 12:34 → SUR 12:35
PROVIDERS: Physician Assistant; PCP Emergency Medicine; Visit Provider Student in an Organized Health Care Education/Training Program
PROC: (CPT 27266; principal; 2021-04-16 12:30)
DX: T84.021A Dislocation of internal left hip prosthesis, initial encounter (principal)
CPT/HCPCS: 27266; 80053; 85652; 86850; 86900; 86901; 87635; 93005; 73502; 85025; 86140; 93010; J1885; J2001; J2405; J2704; J3010

== ENCOUNTER 2021-07-14 03:00 | Outpatient (CLI) | payer MEDICARE, BC, SELFPAY ==
[2021-07-14 12:26] LABS: ESR 3 mm/hr (0-20)
[2021-07-14 12:28] LABS: Abs Immature Grans 0.01 10^3/uL (0.0-0.06); Absolute Basophil Count 0.03 10^3/uL (0.0-0.2); Absolute Eosinophil Count 0.17 10^3/uL (0.0-0.7); Absolute Lymphocyte Count 1.05 10^3/uL (1.2-3.4); Absolute Monocyte Count 0.45 10^3/uL (0.1-0.8); Absolute Neutrophil Count 2.86 10^3/uL (1.2-6.7); Basophils % 0.7; Eosinophils % 3.7; HCT 41.6 % (40.0-50.0); HGB 13.5 g/dL (13.5-17.5); Immature Grans % 0.2; MCH 29.5 pg (27.0-33.0); MCHC 32.5 % (32.0-36.0); MCV 90.8 fL (80-95); MPV 9.7 fL (8.0-11.0); Monocytes % 9.8; Neutrophils % 62.6; Nucleated RBC 0 %; Platelet Count 154 10^3/uL (130-400); RBC 4.58 10^6/uL (4.36-5.78); RDW 15.2 % (11.8-14.1); RDW-SD 50.9 fL; WBC 4.57 10^3/uL (4.4-10.8)
[2021-07-14 13:35] LABS: C-Reactive Protein 0.35 mg/dL (0.0-0.3)
== END 2021-07-14 03:01 | disposition home or self-care (01) ==
LOC: LBO 03:00
PROVIDERS: PCP Emergency Medicine; Visit Provider Emergency Medicine
DX: D72.819 Decreased white blood cell count, unspecified; B99.8 Other infectious disease
CPT/HCPCS: 36415; 85652; 85025; 86140

== ENCOUNTER 2021-11-22 03:50 | Outpatient (CLI) | payer MEDICARE, SELFPAY ==
[2021-11-22 14:07] LABS: Abs Immature Grans 0.01 10^3/uL (0.0-0.06); Absolute Basophil Count 0.04 10^3/uL (0.0-0.2); Absolute Eosinophil Count 0.11 10^3/uL (0.0-0.7); Absolute Lymphocyte Count 0.92 10^3/uL (1.2-3.4); Absolute Monocyte Count 0.33 10^3/uL (0.1-0.8); Absolute Neutrophil Count 3.64 10^3/uL (1.2-6.7); Basophils % 0.8; Eosinophils % 2.2; HCT 42.3 % (40.0-50.0); HGB 13.9 g/dL (13.5-17.5); Immature Grans % 0.2; Lymphocytes % 18.2; MCH 30.8 pg (27.0-33.0); MCHC 32.9 % (32.0-36.0); MCV 93.6 fL (80-95); MPV 10.2 fL (8.0-11.0); Monocytes % 6.5; Neutrophils % 72.1; Nucleated RBC 0 %; Platelet Count 166 10^3/uL (130-400); RBC 4.52 10^6/uL (4.36-5.78); RDW 12.4 % (11.8-14.1); WBC 5.05 10^3/uL (4.4-10.8)
[2021-11-22 14:40] LABS: ALT 19 U/L (16-63); AST 23 U/L (15-37); Albumin 4.1 g/dL (3.4-5.0); Alkaline Phosphatase 111 U/L (46-116); Anion Gap 10.8 mmol/L (3-11); BUN 27 mg/dL (7-18); Bilirubin, Total 0.6 mg/dL (0.2-1.0); C-Reactive Protein 0.54 mg/dL (0.0-0.3); CO2 25.2 mmol/L (21.0-32.0); Calcium 9.1 mg/dL (8.5-10.1); Chloride 108 mmol/L (98-107); Glucose 116 mg/dL (74-106); Potassium 4.5 mmol/L (3.5-5.1); Sodium 144 mmol/L (136-145); Total Protein 6.9 g/dL (6.4-8.2)
== END 2021-11-22 03:51 | disposition home or self-care (01) ==
LOC: LBO 03:50
PROVIDERS: PCP Family Medicine; Visit Provider Emergency Medicine
DX: Z96.642 Presence of left artificial hip joint (principal); Z79.2 Long term (current) use of antibiotics
CPT/HCPCS: 36415; 80053; 85025; 86140

== ENCOUNTER 2022-01-07 04:03 | Outpatient (CLI) | payer MEDICARE, SELFPAY | END 2022-01-07 04:04 | disposition home or self-care (01) | LOC: LBO 04:03 | PROVIDERS: PCP Family Medicine; Visit Provider Surgery | DX: I71.2 Thoracic aortic aneurysm, without rupture (principal) | CPT/HCPCS: 36415; 82565 ==

== ENCOUNTER 2022-06-26 20:20 | Emergency (ER) | payer MEDICARE, SELFPAY ==
[2022-06-26] VITALS (20 sets, daily range): BP systolic 89–133; BP diastolic 56–104; PULSE 62–146; RESP 15–23; TEMP 36.8; O2SAT 98
--- NOTE | 2022-06-26 20:15 | RT.EKG_ITS ---
APPROVED REPORT Exam: Resting ECG Reason for Exam: SVT Patient Location: E HR:143 bpm ECG Measurements Heart Rate [address] 89 P 0 QRSd 141 QRS 63 QT 328 T -37 QTc 506 Conclusion Sinus tachycardia...rate> 99 Right bundle branch block...QRSd>120, terminal axis(90,270)
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
[2022-06-26 20:54] LABS: Abs Immature Grans 0.02 10^3/uL (0.0-0.06); Absolute Basophil Count 0.05 10^3/uL (0.0-0.2); Absolute Eosinophil Count 0.22 10^3/uL (0.0-0.7); Absolute Lymphocyte Count 1.19 10^3/uL (1.2-3.4); Absolute Monocyte Count 0.64 10^3/uL (0.1-0.8); Absolute Neutrophil Count 4.23 10^3/uL (1.2-6.7); Basophils % 0.8; Eosinophils % 3.5; HCT 39.5 % (40.0-50.0); Immature Grans % 0.3; Lymphocytes % 18.7; MCH 30.3 pg (27.0-33.0); MCHC 32.9 % (32.0-36.0); MCV 92 fL (80-95); MPV 10.2 fL (8.0-11.0); Monocytes % 10.1; Neutrophils % 66.6; Platelet Count 186 10^3/uL (130-400); RBC 4.29 10^6/uL (4.36-5.78); RDW 13.7 % (11.8-14.1); RDW-SD 46.5 fL; WBC 6.35 10^3/uL (4.4-10.8)
[2022-06-26] MEDS: dilTIAZem 25 MG/5 ML VIAL 20 MG IVP (20:58)
[2022-06-26] MEDS: Normal Saline 1,000 ML 1000 ML IV (20:58)
[2022-06-26 21:00] LABS: Source Nasal/Nares
--- NOTE | 2022-06-26 21:00 | RT.EKG_ITS ---
APPROVED REPORT Exam: Resting ECG Reason for Exam: svt Patient Location: E HR:72 bpm ECG Measurements Heart Rate 72 AXIS DC 173 P 44 QRSd 151 QRS 42 QT 446 T -23 QTc 490 Conclusion Sinus rhythm...normal P axis, V-rate 60- 99 Right bundle branch block...QRSd>120, terminal axis(90,270) ?flutter waves in rhythm strip
[2022-06-26 21:09] LABS: INR 1.1 (0.9-1.1); PTT Activated 26.9 sec (21.0-27.5); Prothrombin Time 10.9 sec (9.3-11.0)
[2022-06-26 21:11] LABS: ALT 24 U/L (16-63); AST 19 U/L (15-37); Alkaline Phosphatase 105 U/L (46-116); Anion Gap 8.4 mmol/L (3-11); BUN 27 mg/dL (7-18); Bilirubin, Total 0.5 mg/dL (0.2-1.0); CO2 26.6 mmol/L (21.0-32.0); CREATININE 1.2 mg/dL (0.70-1.30); Chloride 110 mmol/L (98-107); Estimated GFR 59.02 (mL/min/1.73m2); Glucose 106 mg/dL (74-106); Potassium 3.9 mmol/L (3.5-5.1); Sodium 145 mmol/L (136-145); Total Protein 7.5 g/dL (6.4-8.2); Troponin I < 50 ng/L (<or=60)
[2022-06-26 21:34] LABS: COVID-19 PCR Negative (Negative)
== END 2022-06-26 22:11 | disposition home or self-care (01) ==
PROVIDERS: Emergency Provider Emergency Medicine; PCP Family Medicine
DX: R00.0 Tachycardia, unspecified (principal); Z87.891 Personal history of nicotine dependence; Z20.822 Contact with and (suspected) exposure to COVID-19; I48.91 Unspecified atrial fibrillation; Z79.01 Long term (current) use of anticoagulants; Z95.810 Presence of automatic (implantable) cardiac defibrillator
CPT/HCPCS: 80053; 87635; 93005; 96361; 96374; 99291; 83735; 84484; 85025; 85610; 85730; 93010

== ENCOUNTER → 2022-07-01 00:58 | Outpatient (CLI) | payer MEDICARE, SELFPAY ==
--- NOTE | 2022-07-01 08:30 | DI.CT_ITS ---
Exam(s) CT SINUS WO EXAM: CT SINUS WO CLINICAL HISTORY: Bilateral mandible abnormalities, Q79.9 TECHNIQUE: COMPARISON: CT SINUS CT WITHOUT CONTRAST from 10/16/2011 FINDINGS: Noncontrast CT examination of the paranasal sinuses was. Visualized portions of brain orbits are. I mages obtained through upper cervical region unremarkable appearance of the spine, no specific trache olaryngeal structure. No cervical mass or adenopathy upper cervical region. There is fluid in a few mastoid air cells bilaterally. Otherwise the temporal bone structures appear intact. There appears to been a prior right maxillary antrectomy with removal of the medial of the right maxi llary antrum. There is nasal septal deviation to the right. There is mild mucoperiosteal thickening of the maxillary sinus on the right. There is mild mucoperiosteal thickening and/or polyp formation noted in left maxillary antrum and ethmoid air cells bilaterally. Frontal and sphenoid sinuses are clear. No bony erosion identified. The ostiomeatal complex of the left maxillary antrum appears nor mal. IMPRESSION: Status post right maxillary antrectomy, minor mucoperiosteal thickening and/or polyp formation noted in maxillary and ethmoid sinuses. No other significant findings. RADIATION DOSE DELIVERED: 171.16mGy.cm Total DLP !Error CTDIvol DATA REPOSITORY: All CT scans at this facility are submitted to the National Radiology Data Registry (NRDR) Dose Index Registry (DIR) with the [employer] (ACR). RADIATION OPTIMIZATION: All CT scans at this facility use at least one of these dose optimization te chniques: automated exposure control; mA and/or kV adjustment per patient size (includes targeted exa ms where dose is matched to clinical indication); or iterative reconstruction.
== END ==
PROVIDERS: PCP Family Medicine; Visit Provider Registered Nurse Maternal Newborn
DX: J34.2 Deviated nasal septum; J32.0 Chronic maxillary sinusitis; J32.2 Chronic ethmoidal sinusitis; Z98.890 Other specified postprocedural states
CPT/HCPCS: 70486

== ENCOUNTER 2022-08-18 11:34 | Outpatient (CLI) | payer MEDICARE, SELFPAY ==
[2022-08-18 11:19] LABS: Abs Immature Grans 0.01 10^3/uL (0.0-0.06); Absolute Basophil Count 0.03 10^3/uL (0.0-0.2); Absolute Eosinophil Count 0.18 10^3/uL (0.0-0.7); Absolute Lymphocyte Count 1.13 10^3/uL (1.2-3.4); Absolute Monocyte Count 0.63 10^3/uL (0.1-0.8); Absolute Neutrophil Count 3.07 10^3/uL (1.2-6.7); Basophils % 0.6; Eosinophils % 3.6; HCT 42.9 % (40.0-50.0); HGB 13.9 g/dL (13.5-17.5); Immature Grans % 0.2; Lymphocytes % 22.4; MCH 29.6 pg (27.0-33.0); MCHC 32.4 % (32.0-36.0); MCV 92 fL (80-95); MPV 9.7 fL (8.0-11.0); Monocytes % 12.5; Neutrophils % 60.7; Platelet Count 154 10^3/uL (130-400); RBC 4.69 10^6/uL (4.36-5.78); RDW-SD 43.4 fL; WBC 5.05 10^3/uL (4.4-10.8)
[2022-08-18 11:22] LABS: ESR 10 mm/hr (0-20)
[2022-08-18 11:34] LABS: C-Reactive Protein 1.24 mg/dL (0.0-0.3)
== END 2022-08-18 11:35 | disposition home or self-care (01) ==
PROVIDERS: PCP Family Medicine; Visit Provider Physician Assistant
DX: Z96.642 Presence of left artificial hip joint (principal)
CPT/HCPCS: 36415; 85652; 85025; 86140

== ENCOUNTER → 2022-10-05 02:41 | Outpatient (CLI) | payer MEDICARE, SELFPAY ==
--- NOTE | 2022-10-05 10:43 | DI.RAD_ITS ---
Exam(s) XR LUMBAR SPINE COMPLETE EXAM: XR LUMBAR SPINE COMPLETE CLINICAL HISTORY: Lumbar DDD and DJD,m51.36 TECHNIQUE: COMPARISON: CR LUMBAR SPINE COMPLETE from 12/12/2014 FINDINGS: Five views were obtained. There is a mild right convex lumbar scoliosis. There are mild degenerativ e changes of the SI joints bilaterally. There is a total hip joint replacement in position on the le ft. There is loss of disc height throughout the lower thoracic and lumbar spine with vacuum disc phenomen a at multiple levels consistent with disc degeneration. There are Liane discal sclerotic changes part icularly at L4-5 and L5-S1. There are prominent hypertrophic endplate and facet joint changes throug hout the lumbar region. No gross spondylolysis or spondylolisthesis. IMPRESSION: Severe DJD lumbosacral spine RADIATION DOSE DELIVERED: Total DLP
== END ==
PROVIDERS: PCP Family Medicine; Visit Provider Family Medicine
DX: I48.91 Unspecified atrial fibrillation; M51.37 Other intervertebral disc degeneration, lumbosacral region; M53.3 Sacrococcygeal disorders, not elsewhere classified; Z96.642 Presence of left artificial hip joint
CPT/HCPCS: 93005; 93282; 72110

== ENCOUNTER 2022-10-05 08:11 | Outpatient (CLI) | payer MEDICARE, SELFPAY ==
--- NOTE | 2022-10-05 08:00 | RT.EKG_ITS ---
APPROVED REPORT Exam: Resting ECG Reason for Exam: afib Patient Location: O HR:83 bpm ECG Measurements Heart Rate 83 AXIS MS 172 P 93 QRSd 159 QRS 68 QT 402 T -34 QTc 473 Conclusion Sinus rhythm...normal P axis, V-rate 50- 99 Ventricular bigeminy...bigeminy string>4 w/ V complexes Right bundle branch block...QRSd>120, terminal axis(90,270)
== END 2022-10-05 08:12 | disposition home or self-care (01) ==
LOC: DI.CARD 08:12
PROVIDERS: PCP Family Medicine; Visit Provider Internal Medicine Cardiovascular Disease
DX: I47.20 Ventricular tachycardia, unspecified (principal); I48.91 Unspecified atrial fibrillation; I45.19 Other right bundle-branch block
CPT/HCPCS: 93010

== ENCOUNTER → 2022-10-26 01:55 | Outpatient (CLI) | payer MEDICARE, SELFPAY ==
--- NOTE | 2022-10-26 14:38 | DI.CT_ITS ---
Exam(s) CT LUMBAR SPINE WO EXAM: CT LUMBAR SPINE WO CLINICAL HISTORY: severe LBP, m51.36,. TECHNIQUE: Imaging Protocol: Axial computed tomography images with coronal and sagittal reformatted images were created and reviewed COMPARISON: CT CT PELVIC WO from 10/08/2020 CR XR HIP LT COMPLETE AP PELVIS from 04/16/2021 CR XR HIP LT COMPLETE AP PELVIS from 04/16/2021 CR XR LUMBAR SPINE COMPLETE from 10/05/2022 FINDINGS: Bones: The last intervertebral disc space is designated the L5/S1 level for the numbering purpose of this examination. The vertebral body heights are well maintained. There are disc space narrowing and vacuum discs at all levels of the lumbar spine. Endplate osteophytes are seen throughout the lumbar spine. There is L5 spondylolysis without spondylolisthesis. Facet arthropathy is seen at all level s of the lumbar spine. No fracture is seen. There is again seen increased sclerosis of the left mian pelvis. This was present on prior examinations. Primary concerns are for Paget's disease or fibrous dysplasia. Metastatic disease or osteomyelitis is considered less likely. There again seen finding s of a left total hip replacement. T12-L1: There is a mild asymmetric hypertrophy at the right aspect of this level. This does cause m ild right neural foraminal stenosis. No significant central spinal canal stenosis is seen. L1-2: There is prominence of the osteophyte disc complex and facet arthropathy. This causes mild ce ntral spinal canal stenosis. Mild neural foraminal stenosis is seen bilaterally. L2-3: There is prominence of the osteophyte disc complex and facet hypertrophy. There is mild narro wing of the central spinal canal. Bilateral neural foraminal stenosis is seen. L3-4: Prominence of the osteophyte disc complex is seen. No significant central spinal canal stenos is is seen. Moderate right and moderately severe left neural foraminal stenosis is present. L4-5: There is prominence of the osteophyte disc complex and hypertrophic changes of the facets. Th ere is mild narrowing of the central spinal canal. There is marked bilateral neural foraminal stenos is present. L5-S1: No disc herniations or bulges are present. No significant central spinal canal stenosis is se en. There is [id number] bilateral neural foraminal stenosis. Facet hypertrophy is present. Soft Tissues: The visualized SI joints and sacrum are will maintained. The paraspinal soft tissues a re unremarkable. There is diverticulosis seen in the colon without evidence of diverticulitis. There is again seen a left renal cyst. IMPRESSION: 1. Multilevel degenerative changes of the lumbar spine resulting in central spinal canal neural jovany inal stenosis as described above. 2. Persistent sclerosis of the left hemipelvis raising the question for Paget's disease or possibly f ibrous dysplasia. Metastatic disease or osteomyelitis are considered less likely. RADIATION DOSE DELIVERED: 948.61mGy.cm Total DLP 948.61mGy.cm Total DLP DATA REPOSITORY: All CT scans at this facility are submitted to the National Radiology Data Registry (NRDR) Dose Index Registry (DIR) with the [employer] (ACR). RADIATION OPTIMIZATION: All CT scans at this facility use at least one of these dose optimization te chniques: automated exposure control; mA and/or kV adjustment per patient size (includes targeted exa ms where dose is matched to clinical indication); or iterative reconstruction.
== END ==
PROVIDERS: PCP Family Medicine; Visit Provider Family Medicine
DX: M51.36 Other intervertebral disc degeneration, lumbar region (principal); M43.06 Spondylolysis, lumbar region; M84.852 Other disorders of continuity of bone, left pelvic region and thigh; Z96.642 Presence of left artificial hip joint
CPT/HCPCS: 72131

== ENCOUNTER 2022-11-02 08:15 | Outpatient (CLI) | payer MEDICARE, SELFPAY ==
--- NOTE | 2022-11-02 06:00 | DI.RAD_ITS ---
Exam(s) XR PAIN CLINIC LUMBAR SP 2V EXAM: XR PAIN CLINIC LUMBAR SP 2V CLINICAL HISTORY: Dx: Lumbar Spondylosis. TECHNIQUE: Fluoroscopy was provided for the referring physician for guidance with performing pain cl inic injection procedure. COMPARISON: No exams were available for comparison FINDINGS: Please see procedure note for details. Fluoro time: 49.8 seconds RADIATION DOSE DELIVERED: nino Saeed=15.94 mGy
[2022-11-02 08:29] VITALS: BP 104/65; PULSE 82; RESP 20; TEMP 36.8; O2SAT 97
--- NOTE | 2022-11-02 09:19 | PDOC.PAIN ---
Date of service: 11/02/22 Time of Service: 09:30 Pain Clinic Procedure Note Procedure Note Procedure Note: Lumbar/Sacral Medial Branch Blocks Mamadou Walker has been referred to the [facility] for lumbar/sacral medial branch blocks. COMMENTS: He was previously evaluated in our clinic. Pre-procedure pain VAS to the low back was 6/10. Dx: Lumbosacral spondylosis without myelopathy Patient was interviewed and the medical record reviewed. There were no medical, pharmacologic, radiographic or other structural contraindications to attempting fluoroscopically guided local anesthetic lumbar/sacral medial branch blocks. Risks and expected side effects as well as potential benefit of the procedure were reviewed and voiced concerns addressed. The printed consent form was signed and witnessed. Standard time-out procedure was performed. Patient was placed in the prone position on the fluoroscopy table and automated blood pressure cuff and pulse oximeter applied. The skin entry points for approaching the anatomic target points of the segmental medial branches of bilateral L3, L4, and L5DR were identified with fluoroscopy and marked. Following thorough Chlorhexadine preparation of the skin and draping and 1% lidocaine infiltration of the skin entry points and subcutaneous tissues, a 22 gauge spinal needle was placed under fluoroscopic guidance down on to the target point for each respective segmental medial branch.Position was confirmed in A/P, oblique and lateral views with 0.25ml of omnipaque 240. Coult be this method .5ml 0.5% Bupivacaine was injected or 1% Lidocaine. Vital signs were stable throughout the procedure and were as recorded in the docflowsheet by the nursing staff. Follow up plans and appointments were discussed and was instructed to keep careful note of how the usual pain was modified by these injections. Specifically was asked to keep a pain diary for the next 4 hours using a numeric pain scale of 0-10 and report these results at the follow-up visit. Post procedure instruction was given as documented in the nursing documentation and having met discharge criteria. Patient was discharged from the [facility] Management [facility]. Based on the medial branches blocked today, if the patient has adequate relief and we are able to proceed to radiofrequency ablation, the treatment should result in the denervation of the bilateral L4-L5 and L%-S1 FACET JOINTS. We would expect to denervate a total of 4 facets during the radiofrequency ablation. COMMENTS: Post-procedure pain VAS was 2/10. Freddy Kennedy DO, MPH [facility] CC: Dariana Tan MD, DC
[2022-11-02] MEDS: Omnipaque 240 MG/ML 50 ML BTL IJ (09:39)
[2022-11-02] MEDS: Bupivacaine 0.5% Pres-Free 10 ML VIAL IJ (09:39)
[2022-11-02 09:40] VITALS: BP 112/58; PULSE 89; RESP 16; O2SAT 97
== END 2022-11-02 08:16 | disposition home or self-care (01) ==
LOC: PC 08:16
PROVIDERS: PCP Family Medicine; Visit Provider Preventive Medicine Occupational Medicine
DX: M47.817 Spondylosis without myelopathy or radiculopathy, lumbosacral region (principal); M54.50 Low back pain, unspecified
CPT/HCPCS: 64493; 64494; 72100; Q9967

== ENCOUNTER 2022-11-17 11:40 | Outpatient (CLI) | payer MEDICARE, SELFPAY ==
--- NOTE | 2022-11-17 07:30 | DI.RAD_ITS ---
Exam(s) XR PAIN CLINIC LUMBAR SP 2V EXAM: XR PAIN CLINIC LUMBAR SP 2V CLINICAL HISTORY: Dx: Lumbar Spondylosis TECHNIQUE: 2D and realtime digital imaging was performed. Radiologist not present. CONTRAST MATERIAL: None. COMPARISON: No exams were available for comparison FINDINGS: Fluoroscopy was provided for pain management therapy. Please refer to procedure report or details. Radiation Exposure Index: Ka,r=19.79 mGy IMPRESSION: As above. RADIATION DOSE DELIVERED:
[2022-11-17 12:45] VITALS: BP 118/72; PULSE 84; RESP 20; TEMP 36.7; O2SAT 97
--- NOTE | 2022-11-17 13:30 | PDOC.PAIN_ITS ---
Date of service: 11/17/22 Time of Service: 13:32 Pain Clinic Procedure Note Procedure Note Procedure Note: Lumbar/Sacral Medial Branch Blocks Mamadou Walker has been referred to the [facility] for lumbar/sacral medial branch blocks. COMMENTS: He did very well with his first LMBBs. Pre-procedure pain VAS was 8/10. Dx: Lumbosacral spondylosis without myelopathy Patient was interviewed and the medical record reviewed. There were no medical, pharmacologic, radiographic or other structural contraindications to attempting fluoroscopically guided local anesthetic lumbar/sacral medial branch blocks. Risks and expected side effects as well as potential benefit of the procedure were reviewed and voiced concerns addressed. The printed consent form was signed and witnessed. Standard time-out procedure was performed. Patient was placed in the prone position on the fluoroscopy table and automated blood pressure cuff and pulse oximeter applied. The skin entry points for approaching the anatomic target points of the segmental medial branches of bilateral L3, l4, and L5 were identified with fluoroscopy and marked. Following thorough Chlorhexadine preparation of the skin and draping and 1% lidocaine infiltration of the skin entry points and subcutaneous tissues, a 22 gauge spinal needle was placed under fluoroscopic guidance down on to the target point for each respective segmental medial branch.Position was confirmed in A/P, oblique and lateral views with 0.25ml of omnipaque 240. Coult be this method .5ml 0.5% Bupivacaine was injected or 1% Lidocaine. Vital signs were stable throughout the procedure and were as recorded in the docflowsheet by the nursing staff. Follow up plans and appointments were discussed and was instructed to keep careful note of how the usual pain was modified by these injections. Specifically was asked to keep a pain diary for the next 24 hours using a numeric pain scale of 0-10 and report these results at the follow-up visit. Post procedure instruction was given as documented in the nursing documentation and having met discharge criteria. Patient was discharged from the [facility]. Based on the medial branches blocked today, if the patient has adequate relief and we are able to proceed to radiofrequency ablation, the treatment should result in the denervation of the bilateral L4-L5 and L5-S1 FACET JOINTS. We would expect to denervate a total of 4 facets during the radiofrequency ablation. COMMENTS: Post-procedure pain VAS was 2/10. Freddy Kennedy DO, MPH [facility]-Pain Management [facility] CC: Dariana Tan MD, DC
[2022-11-17] MEDS: Lidocaine 2% Pres-Free 5 ML VIAL (13:34)
[2022-11-17] MEDS: Omnipaque 240 MG/ML 50 ML BTL IJ (13:35)
[2022-11-17 13:38] VITALS: BP 118/84; PULSE 80; RESP 13; O2SAT 98
== END 2022-11-17 11:41 | disposition home or self-care (01) ==
LOC: PC 11:40
PROVIDERS: PCP Family Medicine; Visit Provider Preventive Medicine Occupational Medicine
DX: M47.817 Spondylosis without myelopathy or radiculopathy, lumbosacral region (principal); M54.50 Low back pain, unspecified
CPT/HCPCS: 64493; 64494; 72100; Q9967

== ENCOUNTER → 2023-01-16 12:46 | Outpatient (BNVA) | payer MEDICARE, SELFPAY | PROVIDERS: PCP Family Medicine; Referring Provider Family Medicine; Visit Provider Surgery | DX: K40.90 Unilateral inguinal hernia, without obstruction or gangrene, not specified as recurrent (principal) | CPT/HCPCS: 99203; 99213 ==

== ENCOUNTER 2023-01-18 01:32 | Outpatient (CLI) | payer MEDICARE, SELFPAY ==
--- NOTE | 2023-01-18 07:15 | DI.NM_ITS ---
Exam(s) NM BONE SCAN WHOLE BDY W/SPECT EXAM: NM BONE SCAN WHOLE BDY W/SPECT CLINICAL HISTORY: abnormal CT,compare to 2020 bone scan,R93.7,SCLEROSIS. TECHNIQUE: Injected dose: 25 0.0 mCi Tc-99 M MDP. Whole body images and lateral views of the head a nd neck, thorax and pelvis. SPECT images of the pelvis. COMPARISON: CT,NM NM BONE SCAN WHOLE BDY W/SPECT from 10/05/[address] PELVIC WO from 10/08/2020 FINDINGS: Decreased activity in the right ribs likely consistent with healing fractures. Stable mildly increas ed activity in lower lumbar spine, consistent with degenerative changes. Bilateral L5 spondylolysis present.. Stable increased activity in the left hemipelvis. Decreased activity at the mid femur it below level of prosthesis. Stable mildly increased activity in the right knee and right 1st MTP join t consistent with degenerative changes. Stable focus of increased activity in the skull vertex. IMPRESSION: Stable appearance of increased uptake in the left hemipelvis and around left acetabulum. Stable focu s of increased activity right skull vertex.. Decreased activity at the tip of the left femoral prost hesis . No new abnormal foci of labeling.
== END 2023-01-18 01:52 ==
PROVIDERS: PCP Family Medicine; Visit Provider Family Medicine
DX: R93.7 Abnormal findings on diagnostic imaging of other parts of musculoskeletal system (principal); M43.06 Spondylolysis, lumbar region; M47.816 Spondylosis without myelopathy or radiculopathy, lumbar region; Z96.642 Presence of left artificial hip joint
CPT/HCPCS: 78306; 78830

== ENCOUNTER 2023-03-02 12:41 | Outpatient (CLI) | payer MEDICARE, SELFPAY ==
[2023-03-02 12:08] LABS: HCT 41.8 % (40.0-50.0); HGB 13.9 g/dL (13.5-17.5); MCH 30.7 pg (27.0-33.0); MCHC 33.3 % (32.0-36.0); MCV 92 fL (80-95); MPV 9.7 fL (8.0-11.0); Platelet Count 173 10^3/uL (130-400); RBC 4.53 10^6/uL (4.36-5.78); RDW 13.2 % (11.8-14.1); RDW-SD 45.2 fL; WBC 5.67 10^3/uL (4.4-10.8)
[2023-03-02 12:16] LABS: ALT 18 U/L (16-63); AST 15 U/L (15-37); Albumin 3.7 g/dL (3.4-5.0); Alkaline Phosphatase 110 U/L (46-116); Anion Gap 7.6 mmol/L (3-11); BUN 25 mg/dL (7-18); Bilirubin, Total 0.4 mg/dL (0.2-1.0); C-Reactive Protein 1.16 mg/dL (0.0-0.3); CO2 28.4 mmol/L (21.0-32.0); CREATININE 1.1 mg/dL (0.70-1.30); Calcium 9.6 mg/dL (8.5-10.1); Chloride 109 mmol/L (98-107); Estimated GFR 69.57 (mL/min/1.73m2); Glucose 92 mg/dL (74-106); Potassium 4.4 mmol/L (3.5-5.1); Sodium 145 mmol/L (136-145); Total Protein 7.8 g/dL (6.4-8.2)
== END 2023-03-02 12:42 | disposition home or self-care (01) ==
LOC: LOS 12:42
PROVIDERS: PCP Family Medicine; Visit Provider Family Medicine
DX: M46.1 Sacroiliitis, not elsewhere classified (principal); R93.7 Abnormal findings on diagnostic imaging of other parts of musculoskeletal system; R10.9 Unspecified abdominal pain; I48.91 Unspecified atrial fibrillation; R79.82 Elevated C-reactive protein (CRP); F41.8 Other specified anxiety disorders
CPT/HCPCS: 36415; 80053; 85027; 86140

== ENCOUNTER → 2023-10-04 13:10 | Outpatient (BNVA) | payer MEDICARE, SELFPAY | PROVIDERS: PCP Family Medicine; Referring Provider Family Medicine; Visit Provider Internal Medicine Cardiovascular Disease | DX: Z45.02 Encounter for adjustment and management of automatic implantable cardiac defibrillator (principal); M54.50 Low back pain, unspecified; I48.91 Unspecified atrial fibrillation | CPT/HCPCS: 93282 ==

== ENCOUNTER 2024-03-13 07:31 | Outpatient (CLI) | payer MEDICARE, SELFPAY ==
--- NOTE | 2024-03-13 07:30 | RT.EKG_ITS ---
APPROVED REPORT Exam: Resting ECG Reason for Exam: evaluation of cardiac status Patient Location: O HR:62 bpm ECG Measurements Heart Rate 62 AXIS WA 179 P 97 QRSd 155 QRS 66 QT 467 T -40 QTc 475 Conclusion Sinus rhythm...normal P axis, V-rate 50- 99 Right bundle branch block...QRSd>120, terminal axis(90,270) Baseline wander in lead(s) II,aVR,V1,V2,V3,V4
== END 2024-03-13 07:32 | disposition home or self-care (01) ==
LOC: DI.CARD 07:33
PROVIDERS: PCP Family Medicine; Visit Provider Student in an Organized Health Care Education/Training Program
DX: Z95.810 Presence of automatic (implantable) cardiac defibrillator (principal); I48.91 Unspecified atrial fibrillation
CPT/HCPCS: 93010

== ENCOUNTER → 2024-03-13 08:18 | Outpatient (BNVA) | payer MEDICARE, SELFPAY | PROVIDERS: PCP Family Medicine; Referring Provider Family Medicine; Visit Provider Student in an Organized Health Care Education/Training Program | DX: Z45.010 Encounter for checking and testing of cardiac pacemaker pulse generator [battery] (principal); I48.0 Paroxysmal atrial fibrillation; I47.20 Ventricular tachycardia, unspecified | CPT/HCPCS: 93005; 93282 ==

== ENCOUNTER → 2024-03-26 09:42 | Outpatient (BNVA) | payer MEDICARE, SELFPAY | PROVIDERS: PCP Family Medicine; Referring Provider Family Medicine; Visit Provider Surgery | DX: L81.9 Disorder of pigmentation, unspecified (principal) | CPT/HCPCS: 99213 ==

== ENCOUNTER 2024-07-12 11:38 | Outpatient (CLI) | payer MEDICARE, SELFPAY ==
--- NOTE | 2024-07-12 10:00 | DI.RAD_ITS ---
Exam(s) XR CHEST 2V PA LATERAL EXAM: XR CHEST 2V PA LATERAL CLINICAL HISTORY: congestion J98.8 RESPIRATORY DISORDER TECHNIQUE: 2D digital imaging was performed. Two views. COMPARISON: CT CT CHEST WO from 01/14/2020 FINDINGS: HEART: Normal size. Pacemaker. Aorta: Mildly tortuous. PULMONARY VASCULATURE: Normal. MEDIASTINUM: Unremarkable. LUNGS: Clear. PLEURAL SPACE: No pleural effusion or pneumothorax. BONE:Unremarkable for age. SOFT TISSUES: Unremarkable. IMPRESSION: No acute abnormality. DATA REPOSITORY: RADIATION DOSE DELIVERED:
== END 2024-07-12 11:58 ==
LOC: DI 11:38
PROVIDERS: PCP Family Medicine; Visit Provider Family Medicine
DX: J98.8 Other specified respiratory disorders (principal)
CPT/HCPCS: 71046

== ENCOUNTER 2024-07-12 14:58 | Outpatient (CLI) | payer MEDICARE, SELFPAY ==
[2024-07-12 15:15] LABS: Abs Immature Grans 0.02 10^3/uL (0.0-0.06); Absolute Basophil Count 0.06 10^3/uL (0.0-0.2); Absolute Eosinophil Count 0.12 10^3/uL (0.0-0.7); Absolute Lymphocyte Count 0.91 10^3/uL (1.2-3.4); Absolute Monocyte Count 0.45 10^3/uL (0.1-0.8); Basophils % 0.8 %; Eosinophils % 1.6 %; HCT 36.8 % (40.0-50.0); HGB 12.9 g/dL (13.5-17.5); Immature Grans % 0.3 %; MCH 32.7 pg (27.0-33.0); MCHC 35.1 % (32.0-36.0); MCV 93 fL (80-95); MPV 9.7 fL (8.0-11.0); Neutrophils % 79.3 %; Platelet Count 216 10^3/uL (130-400); RBC 3.95 10^6/uL (4.36-5.78); RDW 13.4 % (11.8-14.1); RDW-SD 43.5 fL; WBC 7.56 10^3/uL (4.4-10.8)
[2024-07-12 15:48] LABS: ALT 19 U/L (16-63); AST 23 U/L (15-37); Albumin 3.7 g/dL (3.4-5.0); Alkaline Phosphatase 110 U/L (46-116); Anion Gap 6.8 mmol/L (3-11); BUN 26 mg/dL (7-18); Bilirubin, Total 0.51 mg/dL (0.2-1.0); CO2 28.2 mmol/L (21.0-32.0); CREATININE 1.1 mg/dL (0.70-1.30); Calcium 9.4 mg/dL (8.5-10.1); Chloride 107 mmol/L (98-107); Estimated GFR 69.14 (mL/min/1.73m2); Glucose 130 mg/dL (74-106); NT-proBNP 648 pg/mL (<300); Sodium 142 mmol/L (136-145); Total Protein 7.7 g/dL (6.4-8.2)
[2024-07-15 10:07] LABS: Hepatitis C Ab w Rflx HCV PCR Negative (Negative)
== END 2024-07-12 14:59 | disposition home or self-care (01) ==
LOC: LBO 14:58
PROVIDERS: PCP Family Medicine; Visit Provider Family Medicine
DX: I10 Essential (primary) hypertension (principal); R09.89 Other specified symptoms and signs involving the circulatory and respiratory systems; Z11.59 Encounter for screening for other viral diseases
CPT/HCPCS: 36415; 80053; 86803; 83880; 85025

== ENCOUNTER 2024-07-30 10:37 | Outpatient (CLI) | payer MEDICARE, SELFPAY ==
[2024-07-30] MEDS: Inhaler, Assist Device 1 EACH MC (11:30)
[2024-07-30] MEDS: Levalbuterol HFA 15 GM INH 4 PUFF IH (11:31)
--- NOTE | 2024-07-30 16:51 | W.PFT ---
Date of service: 07/30/24 Time of Service: 10:01 Pulmonary Function Test Result Indications: Cough Interpretation Spirometry: There is no airflow limitation. No significant bronchodilator response. Lung Volumes: Normal lung volumes Diffusion Capacity: Normal diffusion. Airway Pressure: Normal airways resistance Impression Normal pulmonary function testing. Clinical Correlation therefore is recommended.
== END 2024-07-30 10:38 | disposition home or self-care (01) ==
LOC: RT 10:37
PROVIDERS: PCP Family Medicine; Visit Provider Family Medicine
DX: R05.9 Cough, unspecified (principal)
CPT/HCPCS: 94060; 94726; 94729

== ENCOUNTER 2024-08-02 00:51 | Outpatient (CLI) | payer MEDICARE, SELFPAY ==
--- NOTE | 2024-08-02 06:30 | DI.CT_ITS ---
Exam(s) CT CHEST WO EXAM: CT CHEST WO CLINICAL HISTORY: persistent cough/sob,r06.02,r05.9. TECHNIQUE: Imaging protocol: Axial computed tomography images were obtained and coronal and sagittal reformatted images were created and reviewed. CONTRAST MATERIAL: Noncontrast COMPARISON: CT CT CHEST WO from 01/14/2020 CR XR CHEST 2V PA LATERAL from 07/12/2024 FINDINGS: Pulmonary parenchyma: No consolidation. No suspicious nodules. No ground-glass opacities. Interstitial changes: None. Emphysema: None. Tracheobronchial tree: No mucous plugging. No bronchiectasis. No bronchial wall thickening. Pleura: No effusion or pneumothorax. Heart: The heart is mildly dilated. Watchman device left atrial appendage. The coronary arteries sh ow mild to moderate calcifications. Pacemaker leads in right atrium and right ventricle. Aorta: Ascending aorta measures 4.5 cm.. Mild atherosclerotic changes. Lymph nodes: No enlarged lymph nodes. Bones: Degenerative changes are seen. No evidence of compression fracture. Upper abdomen: Unremarkable. Soft tissues: Pacemaker over left pectoral muscle. IMPRESSION: No acute abnormality. RADIATION DOSE DELIVERED: 210.66mGy.cm Total DLP 210.66mGy.cm Total DLP 210.66mGy.cm Total DLP 210.66mGy.cm Total DLP DATA REPOSITORY: All CT scans at this facility are submitted to the National Radiology Data Registry (NRDR) Dose Index Registry (DIR) with the [employer] (ACR). RADIATION OPTIMIZATION: All CT scans at this facility use at least one of these dose optimization te chniques: automated exposure control; mA and/or kV adjustment per patient size (includes targeted exa ms where dose is matched to clinical indication); or iterative reconstruction.
--- NOTE | 2024-08-02 08:30 | DI.US_ITS ---
APPROVED REPORT EXAM: Comprehensive 2D, Doppler, and color-flow Echocardiogram Patient Location: Out-Patient Interface Analyst: Marco Rose RDCS (AE) Indications: Cough, SOB Other Information Study Quality: Adequate Conclusion Normal left ventricular wall thickness and chamber size. Ejection fraction is 55%. No segmental wal l motion abnormality are identified Mildly enlarged right ventricle Both atria are moderately enlarged Device lead noted in the right heart Trileaflet aortic valve with mild regurgitation Normal mitral valve with mild regurgitation Estimated right ventricular systolic pressure is 28 mmHg Ascending aorta measures 4.4 cm Wall motion Left Ventricle The left ventricle is normal size. The left ventricular systolic function is normal. The left ventric ular ejection fraction is within the normal range. There is normal left ventricular wall thickness. T here are no segmental wall motion abnormalities There is no ventricular septal defect visualized. LVE F is 55%. Right Ventricle Right ventricle is mildly dilated. Right ventricular systolic function is grossly normal. Device lead is present in the right ventricle. Atria Left atrium is moderately dilated. Right atrium is moderately dilated. The interatrial septum is inta ct with no evidence for an atrial septal defect. Aortic Valve The aortic valve is normal in structure. Aortic valve is trileaflet. There is no aortic valvular sten osis. Mild aortic regurgitation. Mitral Valve The mitral valve is normal in structure. No evidence of mitral valve stenosis. Mild mitral regurgitat ion. Tricuspid Valve The tricuspid valve is normal in structure. There is no tricuspid valve stenosis. Mild tricuspid regu rgitation. The RVSP is 28.4 mmHg. Pulmonic Valve The pulmonary valve is normal in structure. There is no pulmonic valvular stenosis. Mild pulmonic reg urgitation. Great Vessels The aortic root is normal in size. The ascending aorta is moderately dilated. Aortic arch is not well visualized. IVC is normal in size and collapses >50% with inspiration. Pericardium There is no pericardial effusion. 2D Dimensions IVSD d PLAX 1.25 cm M: 0.6-1.2 Ao Root d 3.72 cm M: 3.1 - 3.7 LVPW d PLAX 1.25 cm M: 0.6 - 1.2 Ao Asc Diam d 4.40 cm M: 2.6 - 3.4 LVID d PLAX 5.39 cm M: 4.2 - 5.8 LVDs 3.99 cm M: 2.5 - 4.0 LV EF Teichholz 50.5 % FS 25.94 % LV EDV (Teich) 140.8 mL LV ESV (Teich) 69.7 mL Stroke Vol Index (Teich) 32.62 M-Mode TAPSE 2.79 cm (M/F) >1.7 Auto EF LV EDV A4C 110.0 mL LV EDV A2C 102.1 mL LV EDV BP 106.9 mL LV ESV A4C 55.4 mL LV ESV A2C 51.5 mL LV ESV BP 53.4 mL LVEF(%) A4C 49.6 % LVEF(%) A2C 49.6 % LVEF(%) BP 50.0 % LV SV A4C 54.6 ml LV SV A2C 50.6 ml LV SV BP 53.4 ml LV CO A4C 3.3 L/min LV CO A2C 3.0 L/min LV CO BP 3.1 L/min HR A4C 59.71 BPM HR A2C 60.00 BPM LV EDV Index (BP) LA Volume LA Length A4C 5.8 cm LA Length A2C 6.5 cm LA Area A4C s 18.57 cm2 LA Area A2C s 20.84 cm2 LA Vol A4C A-L 50.10 mL LA Vol A2C A-L 56.39 mL LA Vol Biplane A-L 56.2 mL LA Vol/BSA A4C A-L LA Vol/BSA A2C A-L LA Vol/BSA BP A-L 25.8 mL/m2 LA Vol A4C MOD 47.3 mL LA Vol A2C MOD 52.8 mL LA Vol BP MOD 51.9 mL RA Volume RA Area A4C 17.5 cm2 RA ESV A4C (A-L) 51.7mL RA Vol/BSA A4C A-L RA Length A4C 5.0 cm RA ESV A4C (MOD) 49.9mL LV Diastology MV E' medial 0.062 (>0.07 m/s) MV E Vmax 0.67 (0.4-1.3 m/s) MV E/E' MED 10.86 (<14) MV A Vmax 0.45 (0.4-1.3 m/s) MV E' lateral 0.082 (>0.1 m/s) E/A Ratio 1.5 MV E/E' LAT 8.14 (<14) MV E' Average 0.072 m/s MV E/E'(average) 9.31 Aortic Valve AoV Vmax 1.15 m/s LVOT Vmax 0.94 m/s AoV Peak Grad 24.8 mmHg LVOT Peak Grad 3.5 mmHg AoV Area (Vmax) 2.42 cm2 LVOT VTI 0.208 m AoV VTI 0.255 m LVOT Mean Grad 1.6 mmHg AoV Mean Sarabjit. 0.79 m/s LVOT SV 61.71 mL AoV Mean Grad 2.9 mmHg LVOT Diam s 1.90 cm AoV Area (VTI) 2.42 cm2 AV Regurg Peak Gr. 5.33 mmHg Velocity Ratio 0.82 AR Decel Warrick 1.3m/sec2 AR DT 2601 msec AR PHT 754 msec AR Vmax 3.33 m/s Mitral Valve MV DT 200 (160-240 msec) Pulmonary Valve PV Vmax 0.46 (0.5-1.5 m/s) RVOT Vmax 0.40 m/s PV Peak Grad 0.9 mmHg RVOT Peak Gr. 0.6 mmHg PV Mean Sarabjit 0.33 m/s RVOT VTI 0.094 m PV Mean Grad 0.5 mmHg RVOT Mean Gr. 0.3 mmHg Tricuspid Valve RA Pressure 3.00 mmHg TR Vmax 2.52 m/s TR Peak Grad 25.3 mmHg RVSP (TR) 28.4 mmHg
== END 2024-08-02 01:11 ==
LOC: DI 00:51
PROVIDERS: PCP Family Medicine; Visit Provider Family Medicine
DX: R06.02 Shortness of breath (principal); R05.9 Cough, unspecified
CPT/HCPCS: 71250; 93306

== ENCOUNTER → 2024-09-18 08:15 | Outpatient (BNVA) | payer MEDICARE, SELFPAY | PROVIDERS: PCP Family Medicine; Referring Provider Family Medicine; Visit Provider Student in an Organized Health Care Education/Training Program | DX: Z95.810 Presence of automatic (implantable) cardiac defibrillator (principal); I48.0 Paroxysmal atrial fibrillation; Z95.818 Presence of other cardiac implants and grafts | CPT/HCPCS: 93282 ==

== ENCOUNTER 2024-11-06 04:16 | Outpatient (CLI) | payer MEDICARE, SELFPAY ==
[2024-11-06 12:29] LABS: HCT 41.6 % (40.0-50.0); HGB 13.3 g/dL (13.5-17.5); MCH 28.9 pg (27.0-33.0); MCV 90 fL (80-95); MPV 9.9 fL (8.0-11.0); Platelet Count 186 10^3/uL (130-400); RBC 4.61 10^6/uL (4.36-5.78); RDW-SD 46.5 fL; WBC 4.79 10^3/uL (4.4-10.8)
[2024-11-06 12:37] LABS: ALT 15 U/L (16-63); AST 14 U/L (15-37); Albumin 3.7 g/dL (3.4-5.0); Alkaline Phosphatase 119 U/L (46-116); Anion Gap 7.1 mmol/L (3-11); BUN 26 mg/dL (7-18); Bilirubin, Total 0.35 mg/dL (0.2-1.0); CO2 30.9 mmol/L (21.0-32.0); CREATININE 1.1 mg/dL (0.70-1.30); Calcium 9.6 mg/dL (8.5-10.1); Chloride 110 mmol/L (98-107); Estimated GFR 68.71 (mL/min/1.73m2); Glucose 97 mg/dL (74-106); Potassium 4.4 mmol/L (3.5-5.1); Sodium 148 mmol/L (136-145); Total Protein 7.5 g/dL (6.4-8.2)
[2024-11-06 12:42] LABS: C-Reactive Protein < 0.50 mg/dL (<or=0.5)
== END 2024-11-06 04:17 | disposition home or self-care (01) ==
LOC: LOS 04:16
PROVIDERS: PCP Family Medicine; Visit Provider Family Medicine
DX: R10.9 Unspecified abdominal pain (principal); I10 Essential (primary) hypertension; K46.9 Unspecified abdominal hernia without obstruction or gangrene; K59.00 Constipation, unspecified
CPT/HCPCS: 36415; 80053; 85027; 86140

== ENCOUNTER 2024-11-08 00:34 | Outpatient (CLI) | payer MEDICARE, SELFPAY ==
--- NOTE | 2024-11-08 06:45 | DI.CT_ITS ---
Exam(s) CT ABDOMEN PELVIS W EXAM: CT ABDOMEN PELVIS W CLINICAL HISTORY: rlq hernia; new constipation,K46.9,K59.00 TECHNIQUE: Imaging Protocol: Axial computed tomography images with coronal and sagittal reformatted images were created and reviewed. CONTRAST MATERIAL: Intravenous: Omnipaque 350 Contrast volume:100 mL Oral: Yes COMPARISON: CT CT PELVIC WO from 10/08/2020 CT,NM NM BONE SCAN WHOLE BDY W/SPECT from 01/18/[address] CHEST WO from 08/02/2024 FINDINGS: ABDOMEN: Lung Bases: No acute abnormality. Liver: Normal density. There is a simple cyst in the right lobe of the liver. No follow-up is recomm ended. No suspicious hepatic lesions are seen. Portal, Superior Mesenteric, and Splenic Veins: Unremarkable. Gallbladder and Biliary Tract: No radiodense calculus or dilation. Pancreas: Normal density, no abnormal calcifications or inflammatory process. Spleen: Normal. Adrenals: No masses seen. Kidneys: Normal size, contour and axis. There is a nonobstructing 2 mm stone in the left kidney. The re are bilateral simple renal cysts. No follow-up is recommended. No masses seen. Abdominal Aorta: Abdominal portion non-dilated. Atherosclerotic calcification is present. Bowel: There are diverticula seen in the colon, but no evidence of acute diverticulitis. There is st ool seen throughout the colon suggesting constipation. There is no evidence of bowel wall thickening or obstruction. There is no evidence of appendicitis. The stomach is incompletely distended limiti ng evaluation. Peritoneal Cavity: No ascites, collection or mesenteric inflammatory response. No free air. Lymph Nodes: Within normal limits. Bones: Within normal limits for the patient's age. There is again seen sclerosis of the left mian pe lvis with thickening of the cortex suspicious for Paget's disease. The patient has a left total hip arthroplasty. There is L5 spondylolysis without evidence of spondylolisthesis. Soft Tissues: There is a moderate size fat and fluid containing right inguinal hernia. There is a sm all fat containing umbilical hernia. PELVIS: Bladder: Symmetric distention, no gross wall thickening. Reproductive Organs: Unremarkable as visualized. Lymph Nodes: Within normal limits. Bones: Within normal limits for the patient's age. IMPRESSION: 1. Fat and fluid containing right inguinal hernia. 2. Small fat containing umbilical hernia. 3. Large amount of stool seen throughout the colon suggesting constipation. 4. Colonic diverticulosis without evidence of acute diverticulitis. RADIATION DOSE DELIVERED: 676.06mGy.cm Total DLP DATA REPOSITORY: All CT scans at this facility are submitted to the National Radiology Data Registry (NRDR) Dose Index Registry (DIR) with the [employer] (ACR). RADIATION OPTIMIZATION: All CT scans at this facility use at least one of these dose optimization te chniques: automated exposure control; mA and/or kV adjustment per patient size (includes targeted exa ms where dose is matched to clinical indication); or iterative reconstruction.
[2024-11-08] MEDS: Barium Sulfate 2% W/V-Creamy Vanilla Smoothie 450 ML BTL PO ×2 (07:32→07:33)
[2024-11-08] MEDS: Omnipaque 350 MG/ML 100 ML BTL IJ (09:21)
[2024-11-08] MEDS: Normal Saline - Diluent 50 ML VIAL IJ (09:21)
== END 2024-11-08 00:54 ==
LOC: DI 00:34
PROVIDERS: PCP Family Medicine; Visit Provider Family Medicine
DX: K40.90 Unilateral inguinal hernia, without obstruction or gangrene, not specified as recurrent (principal); K57.30 Diverticulosis of large intestine without perforation or abscess without bleeding
CPT/HCPCS: 74177; J3490

== ENCOUNTER → 2024-11-12 09:22 | Outpatient (BNVA) | payer MEDICARE, SELFPAY | PROVIDERS: PCP Family Medicine; Referring Provider Family Medicine; Visit Provider Surgery | DX: K46.9 Unspecified abdominal hernia without obstruction or gangrene (principal) | CPT/HCPCS: 99214 ==

== ENCOUNTER 2024-12-11 17:18 | Observation (INO) | payer MEDICARE, SELFPAY ==
[2024-12-11] VITALS (25 sets, daily range): BP systolic 118–165; BP diastolic 63–106; PULSE 61–77; RESP 12–16; TEMP 36.1–36.8; O2SAT 91–98; BMI 29.0
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
[2024-12-11] MEDS: HYDROmorphone 2 MG/ML SYR 1 MG IVP ×2 (17:48→18:32)
[2024-12-11 17:49] LABS: Abs Immature Grans 0.03 10^3/uL (0.0-0.06); Absolute Basophil Count 0.05 10^3/uL (0.0-0.2); Absolute Lymphocyte Count 1.03 10^3/uL (1.2-3.4); Absolute Monocyte Count 0.41 10^3/uL (0.1-0.8); Absolute Neutrophil Count 5.19 10^3/uL (1.2-6.7); Basophils % 0.7 %; Eosinophils % 2.9 %; HCT 42.1 % (40.0-50.0); HGB 13.6 g/dL (13.5-17.5); Immature Grans % 0.4 %; Lactate 0.7 mmol/L (<or=2.0); Lymphocytes % 14.9 %; MCH 28.9 pg (27.0-33.0); MCHC 32.3 % (32.0-36.0); MCV 90 fL (80-95); MPV 9.8 fL (8.0-11.0); Monocytes % 5.9 %; Neutrophils % 75.2 %; Platelet Count 205 10^3/uL (130-400); RDW 14.4 % (11.8-14.1); RDW-SD 47.5 fL; WBC 6.91 10^3/uL (4.4-10.8)
[2024-12-11 18:03] LABS: INR 1.1 (0.9-1.1); PTT Activated 27.5 sec (20.6-30.2); Prothrombin Time 10.8 sec (9.1-11.1)
[2024-12-11 18:18] LABS: ALT 18 U/L (16-63); AST 12 U/L (15-37); Alkaline Phosphatase 122 U/L (46-116); Anion Gap 2.9 mmol/L (3-11); BUN 26 mg/dL (7-18); Bilirubin, Total 0.35 mg/dL (0.2-1.0); CO2 32.1 mmol/L (21.0-32.0); Calcium 9.6 mg/dL (8.5-10.1); Chloride 110 mmol/L (98-107); Estimated GFR 77.04 (mL/min/1.73m2); Glucose 103 mg/dL (74-106); Lipase 28 U/L (<78); Magnesium 1.9 mg/dL (1.8-2.4); Potassium 4.4 mmol/L (3.5-5.1); Sodium 145 mmol/L (136-145)
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
--- NOTE | 2024-12-11 19:30 | W.ANESPRE ---
General Info Date of Service Date Performed: 12/11/24 Height: 6 ft Weight: 97.069 kg Body Mass Index (BMI): 29.0 Surgical Procedure: Operation Date: 12/11/24 19:30 Proposed Procedure Side Surgeon p Herniorrhaphy Inguinal Right Mahesh Headley MD Actual Procedure Side Surgeon p Herniorrhaphy Inguinal Right Mahesh Headley MD Pre-Op Diagnosis Post-Op Diagnosis right inguinal hernia Meds Allergies and Home Medications Allergies Allergy/AdvReac Type Severity Reaction Status Date / Time No Known Drug Allergies Allergy no allergy Verified 12/11/24 17:24 Home Medication ?Medication ?Instructions ?Recorded acetaminophen 500 mg tablet 1,000 mg (2 x 500 mg) PO TID #540 05/02/22 (Tylenol Extra Strength) tabs aspirin 81 mg tablet,delayed 81 mg PO DAILY 06/10/24 release metoprolol succinate 100 mg 100 mg PO BID #180 tabs 07/04/24 tablet,extended release 24 hr albuterol sulfate 90 mcg/actuation 2 puff inhalation Q6H PRN 07/25/24 aerosol inhaler (Ventolin HFA) shortness of breath or wheezing #8.5 grams gabapentin 100 mg capsule 100 mg PO Q6H PRN #120 caps 07/31/24 clopidogrel 75 mg tablet (Plavix) 75 mg PO DAILY 09/16/24 omeprazole 40 mg capsule,delayed 40 mg PO DAILY 09/18/24 release lorazepam 1 mg tablet 0.5 mg PO HS 11/12/24 magnesium oxide 400 mg (241.3 mg 400 mg PO DAILY 11/12/24 magnesium) tablet polyethylene glycol 3350 17 17 g PO DAILY 11/12/24 gram/dose oral powder (Miralax) Current Visit Medications: Current Medications Generic Name Dose Route Start Last Admin Trade Name Freq PRN Reason Stop Dose Admin Cefazolin Sodium 2,000 mg/ 100 mls @ 200 mls/hr 12/11/24 19:17 Sodium Chloride IVPB 12/11/24 19:46 NOW ONE IV Miscellaneous Supplies 1 each 12/11/24 17:45 Iv Access IV DIRECTED EZEQUIEL Sodium Chloride 0 ml 12/11/24 17:31 Normal Saline Flush 10 Ml Syr IVP PRN PRN Sodium Chloride 0 ml 12/11/24 20:00 Normal Saline Flush 10 Ml Syr IVP BID EZEQUIEL Sodium Chloride 0 ml 12/11/24 17:31 Normal Saline 10 Ml Vial IJ DIRECTED PRN PFSH Active Problems Active Problems: Problem Status Onset Code Arthralgia Acute M25.50 Presence of Watchman left atrial appendage closure device Acute Z95.818 H/O cardiac catheterization Chronic ~05/30/24 Z98.890 Cough Acute R05.9 BCC (basal cell carcinoma) Acute ~06/28/24 C44.91 Chest congestion Acute R09.89 Congestion of respiratory tract Acute J98.8 Decreased hearing Acute H91.90 Atrial fib/flutter, transient Acute I48.91, I48.92 Pigmented skin lesion of uncertain behavior of upper extremity Acute L81.9 Presence of combination internal cardiac defibrillator (ICD) and pacemaker Acute Z95.810 Right inguinal hernia Acute K40.90 Hernia Chronic K46.[address] of spine Acute R93.7 Sacroiliitis Acute M46.1 Lumbar spondylosis Acute M47.816 Lumbar degenerative disc disease Acute M51.36 Bone anomaly Acute Q79.9 COVID-19 Acute ~02/13/22 U07.1 Anxiety Chronic F41.9 A-fib Chronic I48.91 Dislocation of internal left hip prosthesis Acute 18/ T84.021A Automatic implantable cardiac defibrillator in situ Acute Z95.810 Automatic implantable cardiac defibrillator in situ Acute Z95.810 Diverticulosis of colon without diverticulitis Acute K57.30 History of total left hip arthroplasty Acute 07/15/16 Z96.642 Overweight Acute E66.3 Ventricular tachycardia (paroxysmal) Acute I47.2 Strain of hip flexor Acute S76.019A Leukopenia Acute D72.819 Abnormal radionuclide bone scan Acute R94.8 Left hip pain Acute M25.552 Urinary incontinence Acute R32 Ascending aortic aneurysm Acute I71.2 Stress Acute F43.9 Chronic infection of left hip, currently on antibiotics Acute M00.9 Medical History Medical History History of fracture of clavicle right Hx of biopsy (05/07/18) skin of left arm - basal cell carcinoma, margins negative. Hx of fracture of lower leg right Malignant neoplasm of skin of left upper extremity Surgical History Surgical History Colonoscopy - MAC (07/03/15) Dr. Jasbir Grace History of foot surgery bilateral bunions Hx of sinus surgery Tobacco Smoking/Tobacco Use Status: Never Smokeless tobacco user: other Passive smoking exposure: No Second hand exposure: Yes Alcohol Alcohol Intake: current Alcohol intake frequency: a few times a month Alcohol type: beer Substance Use Substance use: Never Substance use type: does not use Vital Signs and Lab Results Vital Signs Most Recent Vital Signs in EMR: Most Recent Vital Signs Pulse Resp BP Pulse Ox 67 15 140/77 92 12/11/24 18:50 12/11/24 17:20 12/11/24 18:46 12/11/24 18:50 Lab Results 12/11/24 17:42 12/11/24 17:42 Blood Type / Crossmatch: No Data to Display Complete Blood Count: White Blood Count 6.91 10^3/uL (4.4-10.8) 12/11/24 17:42 Red Blood Count 4.70 10^6/uL (4.36-5.78) 12/11/24 17:42 Hemoglobin 13.6 g/dL (13.5-17.5) 12/11/24 17:42 Hematocrit 42.1 % (40.0-50.0) 12/11/24 17:42 Platelet Count 205 10^3/uL (130-400) 12/11/24 17:42 Venous Blood Lactate 0.7 mmol/L (<or=2.0) 12/11/24 17:42 Complete Metabolic Panel: Sodium 145 mmol/L (136-145) 12/11/24 17:42 Potassium 4.4 mmol/L (3.5-5.1) 12/11/24 17:42 Chloride 110 mmol/L (98-107) H 12/11/24 17:42 Carbon Dioxide 32.1 mmol/L (21.0-32.0) H 12/11/24 17:42 BUN 26 mg/dL (7-18) H 12/11/24 17:42 Creatinine 1.0 mg/dL (0.70-1.30) 12/11/24 17:42 Est GFR (CKD-EPI 2020) 77.04 (mL/min/1.73m2) 12/11/24 17:42 Magnesium 1.9 mg/dL (1.8-2.4) 12/11/24 17:42 Calcium 9.6 mg/dL (8.5-10.1) 12/11/24 17:42 Albumin 4.0 g/dL (3.4-5.0) 12/11/24 17:42 Glucose 103 mg/dL (74-106) 12/11/24 17:42 Liver Function Panel: Alanine Aminotransferase (ALT/SGPT) 18 U/L (16-63) 12/11/24 17:42 Aspartate Amino Transf (AST/SGOT) 12 U/L (15-37) L 12/11/24 17:42 Coagulation Panel: INR International Normalized Ratio 1.1 (0.9-1.1) 12/11/24 17:42 Prothrombin Time 10.8 sec (9.1-11.1) 12/11/24 17:42 Activated Partial Thromboplast Time 27.5 sec (20.6-30.2) 12/11/24 17:42 Cardiac Panel: No Data to Display Arterial Blood Gas: No Data to Display Venous Blood Gas: No Data to Display Pancreas Panel: Lipase 28 U/L (<78) 12/11/24 17:42 Thyroid Panel: No Data to Display Infectious Disease: No Data to Display Blood Cultures: No Data to Display Toxicology Panel: No Data to Display Imaging and Studies Imaging and Studies Study information below may be from another EMR and interpreted by another provider. Please see original notes in EMR for more complete details. EKG Summary: 04/16/21: Conclusion Sinus rhythm...normal P axis, V-rate 60- 99 Right bundle branch block...QRSd>120, terminal axis(90,270) Anesthesia Assessment and Plan Anesthesia History Personal History: No History of Anesthesia Complications Family History: No Family History of Anesthesia Complications Exercise Tolerance Exercise Tolerance: Metabolic Equivalents>4 Pertinent Negatives Pertinent Negatives: No Symptoms of GERD (no GERD with RX) Cardiac & Pulmonary Exam Cardiac Exam: Normal S1/S2 Heart Sounds Pulmonary Exam: Clear Bilateral Breath Sounds Implantable Cardiac Device Does patient have a Pacemaker or an ICD?: Yes Device Marine Safety Officer:: SolidX Partnerstr[employer] Reason for Placement:: SVT Date of Last Device Interrogation:: Blue Tooth Airway Exam Known Difficult Airway: No Mallampati Class: 1 Mouth Opening: Normal (> 3cm) Thyromental Distance: Greater than 3 cm Neck Range of Motion: Full ROM Neck Circumference: Normal Teeth Condition: Normal Dentition ASA Classification ASA Score: ASA 3 Emergency Case?: No NPO Status NPO Status: NPO Clears >2 hours, Solids >8 hours Anesthesia Plan Resuscitation Status: Full Code Anesthesia Technique: General Anesthesia Airway Planned: Endotracheal Tube Monitors Used: Standard Monitors and SedLine
[2024-12-11] MEDS: Lactated Ringers 1,000 ML 75 ML IV (20:03)
[2024-12-11 20:09] LABS: Bilirubin Negative (Negative); Blood Small (Negative); Clarity Clear (Clear); Glucose Negative (Negative); Ketones Negative (Negative); Leukocyte Esterase Negative (Negative); Nitrite Negative (Negative); Specific Gravity 1.025 (1.005-1.025); Urobilinogen 0.2 mg/dL (Up to 0.2); pH 5.5 (5-8)
[2024-12-11 20:19] LABS: Bacteria Negative HPF (Negative); C & S Indicated? No; Casts Negative LPF (Negative); Crystals Negative HPF (Negative); Epithelial Cells Rare HPF (Negative); Mucus Trace (Negative); RBC 0-2 HPF (0-2); WBC Negative HPF (0-5)
[2024-12-11] MEDS: ceFAZolin 2 GM/50 ML BAG 100 GM (20:22)
[2024-12-11] MEDS: Bupivacaine LIPOSOME/PF 133 MG/10 ML VIAL IJ (21:13)
[2024-12-11] MEDS: Bupivacaine 0.5% Pres-Free W/EPI 30 ML VIAL (21:19)
--- NOTE | 2024-12-11 21:29 | W.PM.OP ---
Operative Note Operative Note PRE-OP DIAGNOSIS: Incarcerated right inguinal hernia Right-sided direct and indirect inguinal hernias PROCEDURE: Open repair of right-sided inguinal hernia with permanent mesh plug and patch SURGEON: Mahesh Headley COMMERCIAL OCEAN CLAMMER: Jasbir Yu ANESTHESIA TYPE: Local By Surgeon and General LMA/ETT Refer to Anesthesia Record ESTIMATED BLOOD LOSS: 25 PATHOLOGY: none sent COMPLICATIONS: None Patient was transported to: PACU Patient's condition: stable Implants: Bard PerFix light plug and patch with 2 plugs Indications: Mamadou is a 79-year-old male with incarcerated right-sided inguinal hernia Findings: Combined direct and indirect inguinal hernia Procedure Description: I began by confirming the correct site with the Mamadou. We then moved back to the operating room, and he was assisted onto the OR table. General endotracheal anesthesia was induced. The surgical site was then prepped and draped in the usual fashion. I began by making an oblique incision over the right inguinal region. I dissected down through the skin to the deep fascia. Next, I incised the fascia along the length of the inguinal canal to the external ring. I then carefully identified the ilioinguinal nerve and divided. Once this was complete, I bluntly dissected the shelving edge of the inguinal ligament down towards the pubic tubercle. Here, I encircled all cord structures with a Kimberly drain. As the cord was encircled, it was clear that there was at least some component of a direct inguinal hernia, as there was preperitoneal fat and hernia sac protruding up through the edge of the conjoined tendon along the pubic tubercle this was carefully dissected free. Next, I began dissecting the specific cord structures. Great care was taken to spare the vas deferens and the blood supply to the testicle. Next, I isolated the hernia sac from the other inguinal structures. The larger component of this inguinal hernia was the indirect component. I then used a large mesh plug to obliterate the defect at the internal ring. I fixed in place with interrupted Prolene stitches. Once this was complete, I turned my attention back to the conjoined tendon area. Here I was able to manually reduce the direct inguinal hernia. A medium mesh plug was inserted here in order to exclude this hernia sac from the field. This allow me to better see the mesh patch. Next, I buttressed the posterior floor of the inguinal canal with a large mesh patch. I started by fixing it to the pubic tubercle. Next, I used Prolene sutures to affix it to the shelving edge of the inguinal ligament and the conjoined tendon. Laterally I tacked it to the internal oblique fascia and reconstructed an internal ring without any strain on the cord structures. Once this was complete, I irrigated the surgical field. It appeared hemostatic. I then closed the anterior portion of the fascia to reconstruct the front wall of the inguinal canal. I did this with interrupted Vicryl stitches. Once again, I irrigated the surgical field and inspected for hemostasis. Finally, I approximated the superficial fascia and the deep layers of the skin with absorbable suture. Skin was closed with running subcuticular stitches. Bandages were applied, the patient was awakened and transferred to the recovery unit. Date of Procedure: 12/11/24
--- NOTE | 2024-12-11 23:15 | W.PC.ACHO ---
Registration Status: Primary Language: Preferred Language: ED Information & Data Chief Complaint Abd Prob 12/11/24 17:41 Triage Note PT concerned about painful 12/11/24 17:20 diagnosed hernia R lower abd (pelvic area). Scheduled surgery 01/01 to repair. PT is reporting persistent pain regardless of position. Pain started earlier this morning. Pain improved with bowel movement. 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 (Last Reviewed 01/16/23 @ 13:24 by Iza Rudolph MD) History of foot surgery Hx of sinus surgery Colonoscopy - MAC (07/03/15) Most Recent Vital Signs Temperature 36.1 C L 12/11/24 22:47 Temperature Source Temporal Artery Scan 12/11/24 22:47 Pulse 67 12/11/24 22:47 Respiratory Rate 16 12/11/24 22:47 Blood Pressure 119/81 12/11/24 22:47 Blood Pressure Mean 108 12/11/24 19:46 Blood Pressure Position Sitting 12/11/24 17:20 Pulse Oximetry 93 12/11/24 22:47 Respiratory End-tidal CO2 33 12/11/24 22:30 Oxygen Delivery Method Room Air 12/11/24 22:47 Oxygen Flow Rate 0 12/11/24 22:47 Pain Level 0 12/11/24 22:47 Allergies No Known Drug Allergies Allergy (Verified 12/11/24 17:24) no allergy Precautions Isolation Standard precaution 12/11/24 17:29 IV IV Catheter Type [Right Wrist] Peripheral IV IV Catheter Gauge [Right Wrist 18 ] Diet Orders Category Date Time Status Regular/Normal [DIET] Nutrition 12/12/24 Breakfast Ordered Diagnostics 12/11/24 12/11/24 Range/Units 19:54 17:42 WBC 6.91 (4.4-10.8) 10^3/uL RBC 4.70 (4.36-5.78) 10^6/uL Hgb 13.6 (13.5-17.5) g/dL Hct 42.1 (40.0-50.0) % MCV 90 (80-95) fL MCH 28.9 (27.0-33.0) pg MCHC 32.3 (32.0-36.0) % RDW 14.4 H (11.8-14.1) % Plt Count 205 (130-400) 10^3/uL MPV 9.8 (8.0-11.0) fL Immature Gran % 0.4 % Neutrophils % 75.2 % Lymphocytes % 14.9 % Monocytes % 5.9 % Eosinophils % 2.9 % Basophils % 0.7 % Nucleated RBC % 0.0 (0.0-0.3) % Absolute Neutrophils 5.19 (1.2-6.7) 10^3/uL Absolute Lymphocytes 1.03 L (1.2-3.4) 10^3/uL Absolute Monocytes 0.41 (0.1-0.8) 10^3/uL Absolute Eosinophils 0.20 (0.0-0.7) 10^3/uL Absolute Basophils 0.05 (0.0-0.2) 10^3/uL PT 10.8 (9.1-11.1) sec INR 1.1 (0.9-1.1) APTT 27.5 (20.6-30.2) sec VBG Lactate 0.7 (<or=2.0) mmol/L Sodium 145 (136-145) mmol/L Potassium 4.4 (3.5-5.1) mmol/L Chloride 110 H (98-107) mmol/L Carbon Dioxide 32.1 H (21.0-32.0) mmol/L Anion Gap 2.9 L (3-11) mmol/L BUN 26 H (7-18) mg/dL Creatinine 1.0 (0.70-1.30) mg/dL Est GFR (CKD-EPI 2020) 77.04 (mL/min/1.73m2) Glucose 103 (74-106) mg/dL Calcium 9.6 (8.5-10.1) mg/dL Magnesium 1.9 (1.8-2.4) mg/dL Total Bilirubin 0.35 (0.2-1.0) mg/dL AST 12 L (15-37) U/L ALT 18 (16-63) U/L Alkaline Phosphatase 122 H (46-116) U/L Total Protein 8.0 (6.4-8.2) g/dL Albumin 4.0 (3.4-5.0) g/dL Lipase 28 (<78) U/L Urine Color Yellow (Yellow) Urine Clarity Clear (Clear) Urine pH 5.5 (5-8) Ur Specific [place] 1.025 (1.005-1.025) Urine Protein Negative (Neg-Trace) mg/dL Urine Ketones Negative (Negative) mg/dL Urine Blood Small H (Negative) Urine Nitrite Negative (Negative) Urine Bilirubin Negative (Negative) Urine Urobilinogen 0.2 (Up to 0.2) mg/dL Ur Leukocyte Esterase Negative (Negative) Urine RBC 0-2 (0-2) HPF Urine WBC Negative (0-5) HPF Ur Epithelial Cells Rare (Negative) HPF Urine Crystals Negative (Negative) HPF Urine Bacteria Negative (Negative) HPF Urine Casts Negative (Negative) LPF Urine Mucus Trace (Negative) Ur Culture Indicated? No Urine Glucose Negative (Negative) mg/dL Intake and Output - 24 Hour Total 12/11/24 17:18 thru 12/11/24 22:30 Intake Total 700 Balance 700 Weight 97.069 kg Intake: IV 700 Other: Emesis Description None Falls Risk Assessment History of Falls No History 12/11/24 17:29 Contributing Factors No Factors 12/11/24 17:29 Ambulatory Aids Independent 12/11/24 17:29 Tubes/Lines W/no contributing factors 12/11/24 17:29 Gait Evaluation No gait disturbance 12/11/24 17:29 Cognition No cognitive impairment 12/11/24 17:29 Fall Total Score 10 12/11/24 17:29 Level of Risk Standard/Low Risk 12/11/24 17:29 Problems (Last Reviewed 01/16/23 @ 13:24 by Iza Rudolph MD) Right inguinal hernia (Acute) v v v v v v v v v Sending and/or Receiving Nurses: Please use comment section below to note any information pertinent to the patient hand-off not included above. Information / Comments: pt has RT AC iv that was placed by the ER. incision covered with mepilex, C/D/I Report received from: Teressa Lazo RN
--- NOTE | 2024-12-11 23:35 | W.ANESPOSTOP ---
Postoperative Evaluation Date, Time and Location Date Performed: 12/11/24 Time Performed: 22:30 Patient Location: PACU Vital Signs Most Recent Imported Vital Signs: Most Recent Vital Signs Temp Pulse Resp BP Pulse Ox 36.1 C L 67 16 119/81 93 12/11/24 22:47 12/11/24 22:47 12/11/24 22:47 12/11/24 22:47 12/11/24 22:47 Pain Score Most Recent Pain Score: Most Recent Pain Score Pain Level 0 12/11/24 22:47 Assessment Mental Status: Awake (Alert & Oriented to Patient Baseline) Airway and Respiratory Function: Patent airway with normal (patient baseline) respiratory exam Cardiovascular Function: Hemodynamically Stable Hydration Status: Adequately Hydrated Nausea & Vomiting: No Nausea or Vomiting Pain: Pt. Denies Any Pain Peripheral Nerve Block: Patient did not receive a nerve block
[2024-12-12 00:25] VITALS: BP 116/77; PULSE 73; RESP 16; TEMP 35.8; O2SAT 93
[2024-12-12 01:44] VITALS: BP 130/84; PULSE 64; RESP 16; TEMP 36.7; O2SAT 95
[2024-12-12] MEDS: Acetaminophen 325 MG TAB 650 MG PO (05:33)
[2024-12-12] MEDS: Omeprazole 20 MG CAPCR 40 MG PO (08:02)
[2024-12-12] MEDS: Metoprolol CR 100 MG TABCR PO (08:04)
[2024-12-12] MEDS: Aspirin E.C. 81 MG TABEC PO (08:05)
[2024-12-12 08:06] VITALS: BP 126/75; PULSE 87; RESP 17; TEMP 36.9; O2SAT 93
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
--- NOTE | 2024-12-12 10:07 | PDOC.CMDIS ---
Date of service: 12/12/24 Time of Service: 10:07 LACE Index Scoring Tool Questions: Length of Stay (in days): 1 Was the patient admitted via the E.D.?: Yes Comorbidities: Any Tumor (HX Basel Cell Skin Cancer) E.D. Visits: 1 Answers: Total Score: 7 Risk of Readmission: Low Risk Care Management Discharge Plan Reason for Hospitalization: Hernia Discharge Plan: Discharge home via private vehicle with . Follow up with Dr. Headley on 01/01/25, as scheduled and discharge plan of care as directed. No new services are ordered prior to discharge. Patient/Family Education Needs: Review discharge instructions, limitations, medications and plan to follow up with community providers. Discuss ask me three. [facility] Health Related Social Needs: No Data to Display
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
== END 2024-12-12 14:47 | disposition home or self-care (01) ==
LOC: ER 18:02 → DSU 19:59 → MS 23:19
PROVIDERS: Admitting Provider Surgery; Emergency Provider Emergency Medicine; PCP Family Medicine; Responsible Provider Surgery; Visit Provider Surgery
PROC: (CPT 49507; principal; 2024-12-11 19:30)
DX: K40.30 Unilateral inguinal hernia, with obstruction, without gangrene, not specified as recurrent (principal); Z79.82 Long term (current) use of aspirin; Z95.818 Presence of other cardiac implants and grafts; I48.91 Unspecified atrial fibrillation; I48.92 Unspecified atrial flutter; Z96.642 Presence of left artificial hip joint; F41.9 Anxiety disorder, unspecified; Z79.02 Long term (current) use of antithrombotics/antiplatelets
CPT/HCPCS: 49507; 49505; 80053; 83690; 96374; 96376; 99223; 99285; 81003; 81015; 83605; 83735; 85025; 85610; 85730; C1781; J0131; J0666; J0690; J1100; J1171; J1885; J2003; J2250; J2405; J2704; J3010; J3490

== ENCOUNTER → 2024-12-25 13:34 | Outpatient (BNVA) | payer MEDICARE, SELFPAY | PROVIDERS: PCP Family Medicine; Referring Provider Family Medicine; Visit Provider Physical Therapy Assistant | DX: Z48.817 Encounter for surgical aftercare following surgery on the skin and subcutaneous tissue (principal) ==

== ENCOUNTER 2025-01-08 04:32 | Outpatient (CLI) | payer MEDICARE, SELFPAY ==
[2025-01-08 13:06] LABS: Hemoglobin A1C 5.5 % (<5.7)
[2025-01-08 13:31] LABS: Vitamin B12 362 pg/mL (193-986); Vitamin D 25 Total 23 ng/mL (30-100)
[2025-01-09 14:05] LABS: Albumin 59.4 % (55.8-66.1); Total Protein 6.7 g/dL (6.3-8.2)
== END 2025-01-08 04:33 | disposition home or self-care (01) ==
LOC: LOS 04:33
PROVIDERS: PCP Family Medicine; Visit Provider Family Medicine
DX: E11.9 Type 2 diabetes mellitus without complications (principal); E55.9 Vitamin D deficiency, unspecified; Z84.89 Family history of other specified conditions
CPT/HCPCS: 36415; 82306; 82607; 83036; 84165

== ENCOUNTER → 2025-02-05 14:37 | Outpatient (BNVA) | payer MEDICARE, SELFPAY | PROVIDERS: PCP Family Medicine; Referring Provider Family Medicine; Visit Provider Student in an Organized Health Care Education/Training Program | DX: M65.331 Trigger finger, right middle finger (principal); M65.341 Trigger finger, right ring finger; M65.342 Trigger finger, left ring finger | CPT/HCPCS: 99214 ==

== ENCOUNTER 2025-02-27 09:13 | Day surgery (SDC) | payer MEDICARE, SELFPAY ==
--- NOTE | 2025-02-27 07:16 | PDOC.DSDIS_ITS ---
Date of service: 02/27/25 Discharge Plan Disposition Patient Disposition: Home Condition: Stable Discharge Details Attending Provider: Wally Carvalho Primary Care Provider: Dariana Tan Home Meds and New Rx's Prescriptions: Continued aspirin 81 mg tablet,delayed release (DR/EC) 81 mg PO DAILY naproxen sodium 220 mg capsule 220 mg PO DAILY Patient Comments: as needed metoprolol succinate 100 mg tablet extended release 24 hr See Rx Instructions PO BID Qty: 135 5RF Rx Instructions: orally twice a day; 100mg AM and 50mg PM lorazepam 1 mg tablet 0.5 mg PO HS Rx Instructions: renew early due to vacation clopidogrel [Plavix] 75 mg tablet 75 mg PO DAILY Patient Comments: 09/16/24 Per [facility] continue for 6 months (which would be 02/2025) RH omeprazole 40 mg capsule,delayed release(DR/EC) 40 mg PO DAILY gabapentin 100 mg capsule 100 mg PO Q6H PRN Qty: 120 4RF No Action acetaminophen [Arthritis Pain Reliever] 650 mg tablet extended release 650 mg PO ONCE Discharge Instructions Additional Instructions: Surgery: Right middle & ring and Left ring trigger finger releases 02/27/25 Activity: Protect hand for a few weeks. Gently increase finger motion and gripping to prevent stiffness. Recommend elevation to minimize swelling and discomfort. Prescriptions: None Resume home medicines, use [id number] Tylenol (acetaminophen) as needed for mild pain and ibuprofen (Motrin) or naproxen (Aleve) as needed for moderate to severe pain and swelling. Resume Plavix/ clopidogrel tomorrow morning. Dressings: Right- leave dressing in place for 2-3 days. May then remove and leave open to air or cover sutures with Band-Aids. May get wet after 3-5 days. Do not soak under water. Allow to dry before covering. Left- leave dressing in place for 1-2 days. May then remove and leave skin glue open to air or cover incision with Band-Aid. May get wet tomorrow. Follow-up: 10-[address] Carvalho Please call the office during business hours with any questions or concerns. Stand Alone Forms: Comfort Patton ([email or web address]) Referrals: Wally Carvalho MD [ [facility] STAFF PHYSICIAN] - 03/11/25 10:45 am Discharge Orders Discharge Orders: Discharge Order (Routine); Ordered 02/27/25 Ordered By: Andria Palencia DS: Diagnosis Discharge Diagnosis (1) Trigger finger, right middle finger: Status: Acute (2) Trigger finger, right ring finger: Status: Acute (3) Trigger finger, left ring finger: Status: Acute
--- NOTE | 2025-02-27 07:27 | ROE_ITS ---
Operative Note Operative Note PRE-OP DIAGNOSIS: Right middle & ring trigger fingers Left ring trigger finger PROCEDURE: 1. Right middle finger trigger release, CPT# 20599 2. Right ring finger trigger release, CPT# 25539 3. Left ring finger trigger release, CPT# 33725 SURGEON: Wally Carvalho TRACTOR TRAILER MOVING VAN DRIVER: None None ANESTHESIA TYPE: Local By Surgeon Refer to Anesthesia Record ESTIMATED BLOOD LOSS: 2 TOURNIQUET TIME: 0 COMPLICATIONS: None Patient was transported to: same day Patient's condition: stable Indications: Please see complete medical record for details. Procedure Description: In the operating room, the patient was positioned supine on the stretcher. All bony prominences were padded. Preoperative antibiotics were omitted. The correct patient, procedure, and side of the procedure were all verified prior to beginning. Local anesthesia was induced about the site with 10cc of 1% lidocaine containing epinephrine buffered with 1 cc of sodium bicarbonate. The Right hand was prepped and draped in the usual sterile fashion. Proper analgesia was confirmed. A small volar longitudinal approach was made overlying the ring finger MCP joint. Soft tissues were swept to the sides and retracted to expose the A1 halie. The release was started centrally with a knife and completed at the proximal and distal margins with tenotomy scissors. Care was taken to protect the flexor tendons. The tendons were inspected and showed moderate bulbous degeneration, but no significant tearing. Appropriate flexor tendon excursion was confirmed. The patient readily demonstrated good range of motion of the finger without triggering. Next, a small volar longitudinal approach was made overlying the middle finger MCP joint. Soft tissues were swept to the sides and retracted to expose the A1 halie. The release was started centrally with a knife and completed at the proximal and distal margins with tenotomy scissors. Care was taken to protect the flexor tendons. The tendons were inspected and showed some more moderate fraying near the distal margin nearing the A2 halie with the fraying and degeneration debrided. Appropriate flexor tendon excursion was confirmed. The patient readily demonstrated good range of motion of the finger without triggering. The small incisions were irrigated and then dried. Hemostasis was appropriate. The incisions were closed using 3-0 nylon in a horizontal mattress fashion. Xeroform was applied followed by gauze and the hand was gently compressed with an Robbie bandage. Local anesthesia was induced about the contralateral hand site with 1% lidocaine containing epinephrine buffered with sodium bicarbonate. The Left hand was prepped and draped in the usual sterile fashion. Proper analgesia was confirmed. A small volar longitudinal approach was made overlying the ring finger MCP joint. Soft tissues were swept to the sides and retracted to expose the A1 halie. The release was started centrally with a kni fe and completed at the proximal and distal margins with tenotomy scissors. Care was taken to protect the flexor tendons. The tendons were inspected and showed moderate bulbous degeneration with overlying cyst, but no significant tearing, which impinged on the leading edge of the A2 halie, which was released small percentage. Appropriate flexor tendon excursion was confirmed. The patient readily demonstrated good range of motion of the finger without triggering. The small incision was irrigated and then dried. Hemostasis was appropriate. The incision was closed using 3-0 Monocryl buried fashion. Skin glue was applied over the incision followed by gauze and the hand was gently compressed with an Robbie bandage. Full range of motion for this patient was limited by bilateral hand arthritis somewhat. Left hand CMC thumb base arthritis. The patient tolerated local anesthesia without complication and was transferred out of the operating room in a stable condition. Date of Procedure: 02/27/25
[2025-02-27 09:48] VITALS: BP 117/72; PULSE 58; RESP 18; TEMP 36.6; O2SAT 99
[2025-02-27] MEDS: Lidocaine 1% Multi-Dose W/EPI 1/100,000 50 ML VIAL (10:24)
[2025-02-27] MEDS: Sodium Bicarbonate 50 MEQ/50 ML VIAL (10:24)
[2025-02-27 11:38] VITALS: BP 145/85; PULSE 63; RESP 18; TEMP 36.3; O2SAT 97
== END 2025-02-27 12:15 | disposition home or self-care (01) ==
LOC: SUR 09:14
PROVIDERS: PCP Family Medicine; Visit Provider Student in an Organized Health Care Education/Training Program
PROC: (CPT 26055; principal; 2025-02-27 11:00)
DX: M65.331 Trigger finger, right middle finger (principal); M65.341 Trigger finger, right ring finger; M65.342 Trigger finger, left ring finger
CPT/HCPCS: 26055 ×3; J2004

== ENCOUNTER → 2025-03-11 10:46 | Outpatient (BNVA) | payer MEDICARE, SELFPAY | PROVIDERS: PCP Family Medicine; Referring Provider Family Medicine; Visit Provider Student in an Organized Health Care Education/Training Program | DX: Z47.89 Encounter for other orthopedic aftercare (principal); M65.331 Trigger finger, right middle finger; M65.341 Trigger finger, right ring finger; M65.342 Trigger finger, left ring finger | CPT/HCPCS: 99024 ==

== ENCOUNTER → 2025-03-19 08:48 | Outpatient (BNVA) | payer MEDICARE, SELFPAY | PROVIDERS: Visit Provider Student in an Organized Health Care Education/Training Program | DX: I48.0 Paroxysmal atrial fibrillation (principal); I47.29 Other ventricular tachycardia; Z95.810 Presence of automatic (implantable) cardiac defibrillator | CPT/HCPCS: 93282 ==

== ENCOUNTER → 2025-09-01 02:09 | Outpatient (CLI) | payer MEDICARE, SELFPAY ==
--- NOTE | 2025-09-01 15:00 | DI.CT_ITS ---
Exam(s) CT LUMBAR SPINE WO EXAM: CT LUMBAR SPINE WO CLINICAL HISTORY: lumbar stenosis M48.061 SPINAL STENOSIS LUMBAR REGION. TECHNIQUE: Imaging Protocol: Axial computed tomography images with coronal and sagittal reformatted images were created and reviewed COMPARISON: CR LUMBAR SPINE COMPLETE from 12/12/[address] ABDOMEN PELVIS W from 11/08/2024 FINDINGS: Bones: No evidence of fracture or listhesis. There are bilateral pars interarticularis defects at L5 level noted but no listhesis at this level.. There are no lytic osseous lesions evident. There is advanced chronic disc space narrowing at each level in the lumbar spine and there is also vacuum phenomenon within the disc spaces at each level throughout the lumbar spine. INDIVIDUAL LEVELS: T12-L1: Advanced chronic disc space narrowing posterior bony ridging. No obvious disc herniation. Mild-moderate central canal stenosis. Moderate degenerative changes in the left facet joint. Right facet joint unremarkable. Significant bilateral foraminal stenosis evident at this level.. L1-2: Advanced chronic disc space narrowing also evident at this level. Short AP dimensions of the pedicles. Annular bulging. Mild-moderate central canal stenosis. Moderate facet arthropathy on the left side. Moderate-severe on the right side. No prominent foraminal stenosis at this level. L2-3: Chronic advanced disc space narrowing. Short AP dimensions of the pedicles. Symmetrical annular bulging without an obvious disc herniation. Moderate central spinal canal stenosis. Mild degenerative changes in the facet joints. Moderate bilateral foraminal stenosis. L3-4: Chronic moderate disc space narrowing, more so on the left side than the right side. There is broad annular bulging without an obvious disc herniation. There is mild-moderate central spinal canal stenosis. Mild degenerative changes in the facet joints. Moderate-severe bilateral foraminal stenosis. L4-5: Advanced chronic relative uniform disc height loss. Annular bulging. Short AP dimensions the pedicles. Severe degenerative changes in the facet joints. There is annular bulging without an obvious disc herniation. There is severe central spinal canal stenosis at this level. Also severe bilateral foraminal stenosis. L5-S1: Advanced chronic uniform disc height loss. No disc herniation. Central canal dimensions are within normal limits. There is moderate-severe bilateral vertical foraminal stenosis. Bilateral pars defects at L5 but without significant anterolisthesis of L5 upon S1. There are moderate-severe de generative changes in the facet joints. The partially visualized sacroiliac joints and partially visualized sacrum appear unremarkable. PARASPINAL SOFT TISSUES: Visualized paraspinal tissues appear unremarkable. IMPRESSION: 1. Multilevel advanced chronic degenerative disc disease involving each level in the lumbar spine. 2. Multilevel spinal canal stenosis, most prominent at the L4-5 level. 3. There is also multilevel bilateral foraminal stenosis. 4. There are bilateral pars defects at L5 level but no significant listhesis of L5 upon S1. RADIATION DOSE DELIVERED: 725.59mGy.cm Total DLP DATA REPOSITORY: All CT scans at this facility are submitted to the National Radiology Data Registry (NRDR) Dose Index Registry (DIR) with the [employer] ([employer]). RADIATION OPTIMIZATION: All CT scans at this facility use at least one of these dose optimization techniques: automated exposure control; mA and/or kV adjustment per patient size (includes targeted exams where dose is matched to clinical indication); or iterative reconstruction.
== END ==
LOC: DI 02:09
PROVIDERS: PCP Family Medicine; Visit Provider Family Medicine
DX: M48.061 Spinal stenosis, lumbar region without neurogenic claudication (principal)
CPT/HCPCS: 72131

== ENCOUNTER 2025-09-29 10:40 | Outpatient (CLI) | payer MEDICARE, SELFPAY | END 2025-09-29 10:41 | disposition home or self-care (01) | LOC: LOS 10:42 | PROVIDERS: PCP Family Medicine; Visit Provider Family Medicine | DX: R35.0 Frequency of micturition (principal) | CPT/HCPCS: 36415; 84154 ==

== ENCOUNTER 2025-10-15 10:35 | Outpatient (CLI) | payer MEDICARE, SELFPAY ==
--- NOTE | 2025-10-15 06:00 | DI.RAD_ITS ---
Exam(s) XR PAIN CLINIC LUMBAR SP 2V EXAM: XR PAIN CLINIC LUMBAR SP 2V CLINICAL HISTORY: DX: Lumbar Spondylosis. TECHNIQUE: Fluoroscopy was provided for the referring physician for guidance with performing pain clinic injection procedure. COMPARISON: No exams were available for comparison FINDINGS: Please see procedure note for details. Fluoro time: 44.7 seconds RADIATION DOSE DELIVERED: nino Saeed=13.95 mGy
[2025-10-15 10:47] VITALS: BP 129/80; PULSE 69; RESP 18; TEMP 36.2; O2SAT 99
[2025-10-15 11:12] VITALS: PULSE 68; RESP 19; O2SAT 96
[2025-10-15 11:13] VITALS: BP 132/84; PULSE 65; PULSE 67; RESP 18; O2SAT 97
[2025-10-15 11:16] VITALS: BP 130/80; PULSE 61; PULSE 63; RESP 15; O2SAT 97
[2025-10-15 11:20] VITALS: PULSE 60; RESP 15; O2SAT 97
[2025-10-15] MEDS: Omnipaque 240 MG/ML 50 ML BTL IJ (11:37)
[2025-10-15] MEDS: Nerve Block Tray 1 EACH MC (11:37)
[2025-10-15] MEDS: Bupivacaine 0.5% Pres-Free 10 ML VIAL IJ (11:37)
--- NOTE | 2025-10-15 13:40 | PDOC.PAIN ---
Date of service: 10/15/25 Time of Service: 10:55 Pain Managment Procedure Note Procedure Note Procedure Note: PROCEDURE NOTE Bilateral Lumbar Medial Branch Blocks - Confirmatory Date of Service: October 15, 2025 Patient: Mamadou Walker (Tom) Provider: Freddy Hopkins DO, MPH Mamadou Walker (Tom) has been [facility] to [facility] for lumbar medial branch blocks. Pre-operative diagnosis: Lumbar Spondylosis without Myelopathy ICD-10 M47.816 Post-operative diagnosis: Same Pre-procedure pain: VAS= 6/10 COMMENTS: He had bilateral L3-L5 RFA in 2022 and had >2 years of relief. Mamadou Gastelum (Tom) was interviewed and the medical records were reviewed. There were no medical, pharmacologic, radiographic or other structural contraindications to attempting fluoroscopically guided local anesthetic lumbar medial branch blocks. Risks and potential side effects were discussed. I also discussed the potential benefit(s) of the procedure with Mamadou Warren), and voiced concerns were addressed. After Cedillo (Tom) was completely informed about the procedure, the printed consent form was signed. A standard time-out procedure was performed. Cedillo (Tom) was placed in the prone position on the fluoroscopy table. Automated blood pressure cuff and pulse oximeter were applied. The skin entry points for approaching the anatomic target points of the segmental medial branches of bilateral L3,L4,L5 were identified with fluoroscopy and marked. The skin at the target site area was thoroughly prepared with Chlorhexadine. The skin was then draped. Next, a 25 gauge 3.5 spinal needle was placed under fluoroscopic guidance down on to the target point (the articular pillar) for each respective segmental medial branch. Position was confirmed in A/P and lateral views. Aspiration revealed no blood or clear fluid. Next, 0.25ml of omnipaque 240 was injected at each level. No contrast following a vascular or neural pattern was visualized under continuous fluoroscopy. Next, 0.25 ml of preservative-free 0.5% bupivicaine was injected at each level. There was no unusual discomfort expressed by Cedillo (Tom). The needles were withdrawn without difficulty. (49 mls of Omnipaque was wasted) Cedillo (Tom) was observed and was without hemodynamic, neurologic, or allergic reactions.? Fluoroscopic images were digitally archived. Provacative testing using the Modified Tabares's facet loading test- Left side Right Side Directly before the block VAS (0-10) = 6/10 VAS (0-10) = 6/10 Five minutes after the block VAS (0-10) = 2/10 VAS (0-10) = 2/10 Percentage relief obtained with this diagnostic block 80% 80% Any improved physical functioning directly after the blocks? Able to move with ease. Follow up plans and appointments were discussed with Mamadou Warren). Mamadou Warren) was instructed to keep careful note of how the usual pain was modified by these injections. Specifically, to keep a pain diary for the next 4 hours using a numeric pain scale of 0-10 and report these results. Post procedure instruction was given as documented in the nursing documentation and having met discharge criteria, the patient was [facility] from the [facility]. Based on the medial branches blocked today, if they patient has adequate relief and we are able to proceed to radiofrequency ablation, the treatment should result in the denervation of the bilateral L4-L5 and L5-S1 facet joints. We would expect to denervate a total of 4 facets during the radiofrequency ablation. COMMENTS: No apparent complications. Post-procedure pain: VAS= 2/10 Mamadou Warren) will call back with 0-4 hour post-procedure pain scores. I personally performed the entire procedure. FREDDY HOPKINS DO, MPH ABPM&R-subspecialty board certification in Pain Medicine [facility] Coding Conscious Sedation used for procedure: No CPT Codes: LMBB (includes Fluoro) Lumbar/Sacral, 2nd lvl - [id number] ([id number] ~G) LMBB (includes Fluoro) Lumbar/Sacral, single lvl *BILATERAL* - [id number] ([id number]~G5) Additional Codes: Date of Service () Diagnoses: Lumbar spondylosis without myelopathy
== END 2025-10-15 10:36 | disposition home or self-care (01) ==
LOC: PC 10:36
PROVIDERS: PCP Family Medicine; Visit Provider Preventive Medicine Occupational Medicine
DX: M54.50 Low back pain, unspecified (principal); M47.816 Spondylosis without myelopathy or radiculopathy, lumbar region
CPT/HCPCS: 64493; 64494; 72100; J0665; Q9967